=== PATIENT | male | born 2000 | race Caucasian/White ===

== ENCOUNTER 2020-05-15 17:17 | Outpatient (REF) | payer SELFPAY | END 2020-05-15 17:18 | disposition home or self-care (01) | LOC: HO.LAB 17:17 | PROVIDERS: Visit Provider Internal Medicine | DX: Z20.828 Contact with and (suspected) exposure to other viral communicable diseases (principal) | CPT/HCPCS: C9803; U0003 ==

== ENCOUNTER 2020-06-23 19:14 | Emergency (ER) | payer SELFPAY ==
[2020-06-23 19:42] VITALS: BP 126/83; PULSE 90; RESP 18; TEMP 37.6; O2SAT 97; BMI 30.8
--- NOTE | 2020-06-23 20:06 | XR_ITS ---
EXAMINATION: XR CHEST CLINICAL INFORMATION: Shortness of breath COMPARISON: Chest x-ray 06/24/2019 TECHNIQUE: Frontal portable view of the chest was obtained. 8:17 PM FINDINGS: No significant abnormality is noted involving the heart, lungs, mediastinum, bony thorax or soft tissues. XR/XR chest 1V IMPRESSION: Unremarkable examination.
--- NOTE | 2020-06-23 20:08 | ED_ITS ---
HPI - General Adult General Chief complaint: Dyspnea Stated complaint: flu like Time Seen by Provider: 06/23/20 19:57 Source: patient Mode of arrival: ambulatory Limitations: no limitations History of Present Illness HPI narrative: Constitutional : No Weight loss, No Fever, No Chills, No Night Sweats, No Fatigue, No Malaise ENT/Mouth : No Hearing loss, No Ear Pain, No Nasal Congestion, No Sinus Pain, No Hoarseness, No sore throat, No Rhinorrhea, No Swallowing Difficulty Eyes: No Eye Pain, No Swelling, No Redness, No Foreign Body, No Discharge, No Vision Changes Cardiovascular : No Chest Pain, No SOB, No Dyspnea on Exertion, No Orthopnea, No Edema, No Palpitations Respiratory : No Cough, No Sputum, No Wheezing, No Smoke Exposure, No Dyspnea Gastrointestinal : No Nausea, No Vomiting, No Diarrhea, No Constipation, No abdominal Pain, No Hematochezia, No Melena Genitourinary : no irregular bleeding, No Dysuria, No Urinary Frequency, No Hematuria, No Urinary Incontinence, No Urgency, No Flank Pain, No Urinary Flow Changes, No Hesitancy Musculoskeletal : No joint pain, No Myalgias, No Joint Swelling Skin : No Skin Lesions, No rash Neuro : No Weakness, No Numbness, No Paresthesias, No Loss of Consciousness, No Dizziness, No Headache Psych : No Anxiety/Panic, No Depression, No SI/HI/AH/VH, No Social Issues, Heme/Lymph: No Bruising, No Bleeding,No Lymphadenopathy Endocrine : No Polyuria, No Polydipsia, No Temperature IntolerancePatient comes to emergency room complaining of cough. Patient states it started approximately 2 days ago. Patient states she feels short of breath when he coughs. Denies f ever or chills, no myalgias. Patient states he was tested for COVID-19 1 month ago and was negative MD complaint: Cough Related Data Previous Rx's Medication Instructions Recorded benzonatate [Tessalon Perles] 100 mg PO TID PRN #14 cap 06/23/20 Allergies Allergy/AdvReac Type Severity Reaction Status Date / Time No Known Allergies Allergy Unverified 03/14/20 19:02 [No Known Allergies*] Review of Systems Review of Systems: Constitutional : No Weight loss, No Fever, No Chills, No Night Sweats, No Fatigue, No Malaise ENT/Mouth : No Hearing loss, No Ear Pain, No Nasal Congestion, No Sinus Pain, No Hoarseness, No sore throat, No Rhinorrhea, No Swallowing Difficulty Eyes: No Eye Pain, No Swelling, No Redness, No Foreign Body, No Discharge, No Vision Changes Cardiovascular : No Chest Pain, No SOB, No Dyspnea on Exertion, No Orthopnea, No Edema, No Palpitations Respiratory : Complaining of dry cough, No Sputum, No Wheezing, No Smoke Exposure, complaining of shortness of breath when coughing Gastrointestinal : No Nausea, No Vomiting, No Diarrhea, No Constipation, No abdominal Pain, No Hematochezia, No Melena Genitourinary : no irregular bleeding, No Dysuria, No Urinary Frequency, No Hematuria, No Urinary Incontinence, No Urgency, No Flank Pain, No Urinary Flow Changes, No Hesitancy Musculoskeletal : No joint pain, No Myalgias, No Joint Swelling Skin : No Skin Lesions, No rash Neuro : No Weakness, No Numbness, No Paresthesias, No Loss of Consciousness, No Dizziness, No Headache Psych : No Anxiety/Panic, No Depression, No SI/HI/AH/VH, No Social Issues, Heme/Lymph: No Bruising, No Bleeding,No Lymphadenopathy Endocrine : No Polyuria, No Polydipsia, No Temperature Intolerance [facility] Social History Social History Advance Directives: No Advance Directives Information Provided: No Physical Exam Vital Signs: Vital Signs: Last Vital Signs Temp 99.7 F 06/23/20 19:42 Pulse 90 06/23/20 19:42 Resp 18 06/23/20 19:42 BP 126/83 06/23/20 19:42 Pulse Ox 97 06/23/20 19:42 Body Mass Index 30.8 Appearance: Alert. Oriented X3. No acute distress. Eyes: Pupils equal, round and reactive to light. ENT: Pharynx normal. Neck: Normal inspection. Neck supple. No lymph nodes noted. No crepitus CVS: Normal heart rate and rhythm. Pulses normal. Normal S1 and S2 Respiratory: No respiratory distress. Breath sounds normal. No Wheezing. No rales Abdomen: Soft and nontender. No rigidity. No distention. good BS x4 Skin: Skin warm and dry. Normal skin color. Normal skin turgor. Extremities: No lower extremity edema. No lower extremity edema. No Lacerations. No Rash Neuro: Oriented X 3. No motor deficit. No sensory deficit. Moving all extermities. No slurred speech. Course Course Course Narrative: I discussed the x-ray with the patient, patient's x-rays within normal limits. Patient has generalized malaise likely secondary to a viral syndrome versus viral bronchitis Medical Decision Making Imaging Data Chest x-ray: Radiologist's impression: FINDINGS: No significant abnormality is noted involving the heart, lungs, mediastinum, bony thorax or soft tissues. XR/XR chest 1V IMPRESSION: Unremarkable examination. Discharge Plan Discharge Clinical Impression: Cough, Acute viral syndrome Patient Disposition: Home, Self-Care Instructions: Acute Cough (ED) Additional Instructions: Please follow-up with your primary care physician tomorrow. If you have any worsening or new symptoms, please return to the emergency room or call 911 Prescriptions: New benzonatate [Tessalon Perles] 100 mg capsule 100 mg PO TID PRN (Reason: cough) Qty: 14 RF: 0
--- NOTE | 2020-06-23 20:40 | PC.NURSE ---
pt to room with c/o sob and fever x 2 days. md in room for eval. COVID obtained. pt awaiting further orders.
== END 2020-06-23 21:32 | disposition home or self-care (01) ==
PROVIDERS: Emergency Provider Emergency Medicine
DX: B34.9 Viral infection, unspecified (principal); R06.00 Dyspnea, unspecified; R05 Cough; Z20.828 Contact with and (suspected) exposure to other viral communicable diseases
CPT/HCPCS: 71045; 99283; U0003

== ENCOUNTER 2021-02-26 00:06 | Emergency (ER) | payer OTHER, SELFPAY ==
[2021-02-26 00:18] VITALS: BP 121/71; PULSE 85
[2021-02-26] MEDS: EPINEPHrine 1 MG/ML VIAL 0.3 MG IM (00:18)
[2021-02-26] MEDS: diphenhydrAMINE HCL 50 MG/ML VIAL IVPUSH (00:21)
[2021-02-26] MEDS: methylPREDNISolone Sod Succ 125 MG/2 ML VIAL IVPUSH (00:21)
--- NOTE | 2021-02-26 00:22 | ED.ALLEREA ---
HPI - Allergic Reaction General Chief complaint: Allergic Reaction Stated complaint: Allergic Reaction Time Seen by Provider: 02/26/21 00:14 Source: patient Mode of arrival: ambulatory Limitations: no limitations History of Present Illness HPI narrative: Patient had fish and cold so nice clean within 1 hour of that noticed hives all over the body. No history of allergic reaction in the past. Patient feels lips are swollen. No tongue swelling no shortness of breath no throat tightness Related Data Previous Rx's Medication Instructions Recorded benzonatate 100 mg capsule 100 mg PO TID PRN #14 cap 06/23/20 (Tessalon Perles) diphenhydramine HCl 25 mg tablet 50 mg PO QID PRN #20 tab 02/26/21 (Benadryl Allergy) prednisone 20 mg tablet 40 mg PO DAILY #10 tab 02/26/21 Allergies Allergy/AdvReac Type Severity Reaction Status Date / Time No Known Allergies Allergy Unverified 03/14/20 19:02 [No Known Allergies*] Review of Systems Review of Systems: Yes all other systems are reviewed and are negative [facility] Social History Social History Alcohol intake: never Smoked in Last 30 Days: No Use of substances other than those prescribed or required for medical reasons: No Advance Directives: No Physical Exam Vital Signs: Vital Signs: Last Vital Signs Temp 98.3 F 02/26/21 00:25 Pulse 72 02/26/21 01:27 Resp 20 02/26/21 01:27 BP 117/61 02/26/21 01:27 Pulse Ox 97 02/26/21 01:27 Body Mass Index 29.0 Const: General: no acute distress Orientation/consciousness: patient oriented x3 HENMT: Head: Yes normocephalic Ears: hearing grossly normal bilaterally General nose exam: Normal external nose present Mouth: no muffled voice and tongue abnormal (Slightly swollen) Throat: Yes posterior oropharynx normal, Yes tonsils normal and No uvular edema Resp: Effort & Inspection: normal respiratory effort Auscultation: clear to auscultation bilaterally Cardio: Rate: regular rate Rhythm: regular rhythm Heart sounds: S1 normal heart sound present and S2 normal heart sound present GI: Inspection: Yes normal to inspection Palpation (GI): Soft to palpation and nontender Auscultation: normal bowel sounds Skin: Other: Hives all over extremities and trunk and the face , lips slightly swollen too Neuro: General: patient oriented x3 Discharge Plan Discharge Clinical Impression: Allergic reaction Qualifiers: Encounter type: initial encounter Qualified Code(s): T78.40XA - Allergy, unspecified, initial encounter Patient Disposition: Home, Self-Care Instructions: Food Allergy (ED), Allergies (ED) Additional Instructions: Cause of allergic reaction not clear likely food/fish Benadryl, prednisone as advised follow with PCP for further evaluation Report to the ER if recurrence of the rash, throat swelling, shortness of breath Prescriptions: New prednisone 20 mg tablet 40 mg PO DAILY Qty: 10 RF: 0 diphenhydramine HCl [Benadryl Allergy] 25 mg tablet 50 mg PO QID PRN (Reason: allergic reaction) Qty: 20 RF: 0 No Action benzonatate [Tessalon Perles] 100 mg capsule 100 mg PO TID PRN (Reason: cough) Qty: 14 RF: 0 Interventions: ED Discharge Assessment Last Done: 02/26/21 01:28 Discharge Date/Time: 02/26/21 01:34
[2021-02-26 00:25] VITALS: BP 121/71; PULSE 72; RESP 16; TEMP 36.8; O2SAT 100; BMI 29.0
[2021-02-26 00:32] VITALS: BP 157/72; PULSE 104; RESP 18; O2SAT 100
[2021-02-26] MEDS: diphenhydrAMINE HCL 25 MG TABLET 50 MG PO (01:18)
[2021-02-26] MEDS: Famotidine/PF 20 MG/2 ML VIAL IVPUSH (01:19)
[2021-02-26 01:22] VITALS: BP 126/69; PULSE 75; RESP 20; O2SAT 100
--- NOTE | 2021-02-26 01:23 | PC.NURSE ---
pt rash is improving, no facial swelling, pt talking in full sentences. sat 100% on room air. pt able to swallow with no difficulty
[2021-02-26 01:27] VITALS: BP 117/61; PULSE 72; RESP 20; O2SAT 97
== END 2021-02-26 01:34 | disposition home or self-care (01) ==
PROVIDERS: Emergency Provider Internal Medicine
DX: T78.40XA Allergy, unspecified, initial encounter (principal); L50.9 Urticaria, unspecified; X58.XXXA Exposure to other specified factors, initial encounter
CPT/HCPCS: 96372; 96374; 96375; 99284; J0171; J1200; J2930; Q0163

== ENCOUNTER 2021-06-20 00:27 | Emergency (ER) | payer OTHER, SELFPAY ==
[2021-06-20 00:38] VITALS: BP 147/84; PULSE 89; RESP 18; TEMP 37.1; O2SAT 98; BMI 30.2
[2021-06-20] MEDS: EPINEPHrine 1 MG/ML VIAL 0.3 MG IM (00:49)
[2021-06-20] MEDS: diphenhydrAMINE HCL 50 MG/ML VIAL IM (00:53)
[2021-06-20] MEDS: dexAMETHasone 2 MG TABLET 10 MG PO (00:55)
[2021-06-20] MEDS: Famotidine 20 MG TABLET PO (00:55)
--- NOTE | 2021-06-20 01:00 | ED.ALLEREA ---
HPI - Allergic Reaction General Chief complaint: Allergic Reaction Stated complaint: allergic reaction Time Seen by Provider: 06/20/21 00:45 Source: patient Mode of arrival: ambulatory Limitations: no limitations History of Present Illness HPI narrative: Patient's history of remote history of allergic reaction to cod fish today patient had cod fish an hour ago and after that patient noticed hives with tingling of the tongue and lips with mild difficulty in breathing. Patient is speaking full sentences no significant shortness of breath noticed also patient has noticed some stomach upset but no vomiting Related Data Previous Rx's Medication Instructions Recorded benzonatate 100 mg capsule 100 mg PO TID PRN #14 cap 06/23/20 (Tessalon Perles) diphenhydramine HCl 25 mg tablet 50 mg PO QID PRN #20 tab 02/26/21 (Benadryl Allergy) prednisone 20 mg tablet 40 mg PO DAILY #10 tab 02/26/21 diphenhydramine HCl 25 mg capsule 50 mg PO Q6H PRN #20 cap 06/20/21 (Benadryl) prednisone 20 mg tablet 40 mg PO DAILY #10 tab 06/20/21 Allergies Allergy/AdvReac Type Severity Reaction Status Date / Time No Known Allergies Allergy Unverified 03/14/20 19:02 [No Known Allergies*] Review of Systems Review of Systems: Yes all other systems are reviewed and are negative [facility] Social History Social History Alcohol intake: never Advance Directives: No Physical Exam Vital Signs: Vital Signs: Last Vital Signs Temp 98.4 F 06/20/21 01:18 Pulse 88 06/20/21 01:18 Resp 16 06/20/21 01:18 BP 132/72 06/20/21 01:18 Pulse Ox 100 06/20/21 01:18 BMI result Body Mass Index 30.2 Appearance: Alert. Oriented X3. No acute distress. ENT: Pharynx normal. Oral Mucosa moist no significant tongue swelling noticed uvula normal and midline slight swelling of the lower lip Neck: Normal inspection. Neck supple. No stridor CVS: Normal heart rate and rhythm. Pulses normal. Respiratory: No respiratory distress. Equal air entry bilateral, no wheezing/rales/rhonchi Abdomen: Soft and nontender. Bowel sounds are present, no mass palpable, no CVA tenderness Skin: Skin warm and dry. Diffuse hives or the back of the chest and face extremities Normal skin turgor. Extremities: No lower extremity edema. No calf tenderness Neuro: Oriented X 3. MDM - Allergic Reaction MDM Narrative Medical decision making narrative: Patient allergic reaction to codfish improved after appy Pepcid Decadron and Benadryl now feeling much better hives have gone will discharge patient home Discharge Plan Discharge Clinical Impression: Allergic reaction Qualifiers: Encounter type: initial encounter Qualified Code(s): T78.40XA - Allergy, unspecified, initial encounter Patient Disposition: Home, Self-Care Instructions: General Allergic Reaction (ED) Additional Instructions: Do not eat codfish as you are allergic to it Benadryl 50 mg every 6 hours as needed Report to the ER if recurrence of the rash Start taking prednisone in the morning if rash recurs otherwise do not take prednisone No coma bacalao, ya que es al?rgico a ?l. Benadryl 50 mg cada 6 horas seg?n sea necesario Informe a la bradley de emergencias si reaparece la erupci?n Empiece a irene prednisona por la ma?denice si la erupci?n reaparece; de ??lo contrario, no tome prednisona Prescriptions: New diphenhydramine HCl [Benadryl] 25 mg capsule 50 mg PO Q6H PRN (Reason: allergic reaction) Qty: 20 RF: 0 prednisone 20 mg tablet 40 mg PO DAILY Qty: 10 RF: 0 No Action benzonatate [Tessalon Perles] 100 mg capsule 100 mg PO TID PRN (Reason: cough) Qty: 14 RF: 0 prednisone 20 mg tablet 40 mg PO DAILY Qty: 10 RF: 0 diphenhydramine HCl [Benadryl Allergy] 25 mg tablet 50 mg PO QID PRN (Reason: allergic reaction) Qty: 20 RF: 0 Print Language: [place] Citizen
[2021-06-20 01:18] VITALS: BP 132/72; PULSE 88; RESP 16; TEMP 36.9; O2SAT 100
[2021-06-20 02:00] VITALS: BP 119/63; PULSE 77; RESP 16; TEMP 36.8; O2SAT 100
== END 2021-06-20 02:06 | disposition home or self-care (01) ==
PROVIDERS: Emergency Provider Internal Medicine
DX: T78.1XXA Other adverse food reactions, not elsewhere classified, initial encounter (principal); L50.9 Urticaria, unspecified; X58.XXXA Exposure to other specified factors, initial encounter
CPT/HCPCS: 96372; 99284; J0171; J1200; J8540

== ENCOUNTER 2021-11-22 22:34 | Emergency (ER) | payer OTHER, SELFPAY ==
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
[2021-11-22 23:20] VITALS: BP 147/82; PULSE 75; RESP 18; TEMP 37.1; O2SAT 98; BMI 30.2
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
[2021-11-23] MEDS: Ibuprofen 600 MG TABLET PO (02:55)
[2021-11-23 03:08] VITALS: BP 129/85; PULSE 64; RESP 18; TEMP 36.7; O2SAT 97
== END 2021-11-23 03:23 | disposition home or self-care (01) ==
PROVIDERS: Emergency Provider Emergency Medicine Emergency Medical Services
DX: S16.1XXA Strain of muscle, fascia and tendon at neck level, initial encounter (principal); S43.402A Unspecified sprain of left shoulder joint, initial encounter; M54.50 Low back pain, unspecified; M54.6 Pain in thoracic spine; M54.2 Cervicalgia; V43.52XA Car driver injured in collision with other type car in traffic accident, initial encounter; Y93.9 Activity, unspecified; Y92.410 Unspecified street and highway as the place of occurrence of the external cause; Y99.9 Unspecified external cause status; Z79.899 Other long term (current) drug therapy
CPT/HCPCS: 70450; 72125; 99283

== ENCOUNTER 2022-02-28 23:42 | Emergency (ER) | payer OTHER, SELFPAY | END 2022-03-01 00:02 | disposition left against medical advice (07) | LOC: HO.ED 03-01 00:02 | PROVIDERS: Emergency Provider Emergency Medicine | DX: M79.646 Pain in unspecified finger(s) (principal) ==

== ENCOUNTER 2022-10-27 20:43 | Emergency (ER) | payer MEDICAID, SELFPAY ==
--- NOTE | ~2022-10-27 | CT_ITS ---
EXAMINATION: CT ABDOMEN AND PELVIS WITHOUT CONTRAST CLINICAL INFORMATION: Left flank pain with hematuria COMPARISON: None available. TECHNIQUE: Multidetector volumetric imaging was performed from the superior aspect of the liver through the pubic symphysis. Sagittal and coronal reformatted images were obtained on the technologist's workstation. This CT examination was performed using dose optimization techniques as appropriate, variously including the following: *Automated exposure control *Adjustment of mA and/or kV according to patient size (this includes techniques or standardized protocols for targeted exams where dose is matched to indication/reason for exam; i.e. extremities or head) *Use of iterative reconstruction technique DLP: 629 mGy-cm FINDINGS: LUNG BASES: The visualized lung bases are unremarkable. LIVER, GALLBLADDER, AND BILIARY TREE: The liver is normal in size, shape, and attenuation. No focal hepatic lesion or biliary ductal dilatation is identified. The gallbladder is unremarkable with no evidence of radiopaque gallstones, gallbladder wall thickening, or obvious pericholecystic inflammatory changes. PANCREAS: Unremarkable. SPLEEN: Unremarkable. ADRENAL GLANDS: Unremarkable. KIDNEYS AND URETERS: The kidneys are normal in size, shape, and attenuation. No hydronephrosis, hydroureter, or calculi seen. No perinephric stranding. BLADDER: Unremarkable. GASTROINTESTINAL TRACT: No evidence of bowel obstruction or significant wall thickening. The appendix is unremarkable. No free fluid or free air is seen. ABDOMINAL WALL: No significant hernia is appreciated. LYMPH NODES: Numerous scattered subcentimeter lymph nodes throughout the mesentery. Few enlarged left inguinal lymph nodes are noted, measuring up to 1.4 cm in short axis dimension. VASCULAR: Unremarkable. PELVIC VISCERA: Unremarkable. OSSEOUS STRUCTURES: Unremarkable. CT/CT abdomen pelvis wo IV con IMPRESSION: 1. No hydronephrosis or calculus identified. 2. Few enlarged left inguinal lymph nodes, of uncertain clinical significance and which may be reactive. 3. Numerous nonspecific scattered subcentimeter mesenteric lymph nodes.
[2022-10-27 21:02] VITALS: BP 160/85; PULSE 80; RESP 16; TEMP 36.7; O2SAT 98; BMI 30.3
[2022-10-27 21:24] LABS: Appearance Urine Clear; Color Urine Yellow; Glucose Urine UA Negative (Negative); Leukocyte Esterase Urine Negative (Negative); Nitrite Urine Negative (Negative); Specific Gravity - Urine 1.025 (1.005-1.025); UMIC TRIGGER UACC YES; Urine Blood Small (1+) (Negative); Urine Ketones Trace mg/dL (Negative); Urine Protein Negative (Neg-Trace)
[2022-10-27 21:32] LABS: Bacteria Urine None Seen (None Seen); Hyaline Casts Urine 0-2 /LPF (0-2); Squamous Epithelial Cell Urine 0-2 /HPF (0-2); WBC Urine 0-5 /HPF (0-5)
[2022-10-27 21:39] LABS: MANUAL DIFF FLAG NO
[2022-10-27 21:42] LABS: Basophils Percent Auto 0.6 % (0-2); Eosinophils Absolute Auto 0.3 X10*3/uL (0.0-0.4); Eosinophils Percent Auto 4.9 % (0-4); Hematocrit 43.9 % (42.0-52.0); Hemoglobin 13.9 g/dl (14.0-18.0); Imm Gran Abs Auto 0.01 X10*3/uL (0.00-0.03); Imm Gran Pct Auto 0.1 % (0.0-0.4); Lymphocytes Absolute Auto 1.5 X10*3/uL (1.2-4.9); Lymphocytes Percent Auto 21.9 % (20-40); Mean Corpuscular HGB Conc 31.7 g/dl (31.0-36.0); Mean Corpuscular Hemoglobin 25.5 pg (27.0-33.0); Mean Corpuscular Volume 80.4 fL (80.0-98.0); Mean Platelet Volume 10.3 fL (9.4-12.4); Monocytes Absolute Auto 0.8 X10*3/uL (0.1-1.2); Monocytes Percent Auto 12.1 % (2-11); Neutrophils Absolute Auto 4.2 x10*3/uL (2.0-8.3); Neutrophils Percent Auto 60.4 % (45-73); Platelet Count 298 X10*3/uL (160-400); Red Blood Count 5.46 X10*6/uL (4.60-5.80); Red Cell Distribution Width 13.4 % (11.0-16.0); White Blood Count 6.9 X10*3/uL (4.8-10.8)
[2022-10-27 21:53] LABS: Anion Gap 12 (12-20); Blood Urea Nitrogen 13 mg/dL (9-16); Calcium 9.8 mg/dL (8.4-10.2); Carbon Dioxide 27 mmol/L (22-29); Chloride 105 mmol/L (96-108); Creatinine Clr Calc Pharmacy 135.9; Estimated Glomerular Filt Rate > 60; Glucose Random 96 mg/dL (60-115); Potassium 4.2 mmol/L (3.3-5.1); Sodium 140 mmol/L (135-145)
--- NOTE | 2022-10-28 00:28 | ED.MALEGU ---
HPI - Male Genitourinary General Chief complaint: Urogenital-Male Stated complaint: Flank pain Time Seen by Provider: 10/27/22 23:47 Source: patient Mode of arrival: ambulatory Limitations: no limitations History of Present Illness HPI Narrative: Patient with no significant past medical history noticed pain left flank few days , since yesterday noticed the urine. No nausea no vomiting no diarrhea no abdominal pain patient is not aware of any kidney stone in the family Related Data Previous Rx's Medication Instructions Recorded benzonatate 100 mg capsule 100 mg PO TID PRN cough #14 caps 06/23/20 (Tessalon Perles) diphenhydramine HCl 25 mg tablet 50 mg PO QID PRN allergic reaction 02/26/21 (Benadryl Allergy) #20 tabs prednisone 20 mg tablet 40 mg PO DAILY #10 tabs 02/26/21 diphenhydramine HCl 25 mg capsule 50 mg PO Q6H PRN allergic reaction 06/20/21 (Benadryl) #20 caps prednisone 20 mg tablet 40 mg PO DAILY #10 tabs 06/20/21 ibuprofen 600 mg tablet 600 mg PO Q6H PRN fever or pain 10/28/22 #30 tabs polyethylene glycol 3350 17 17 g PO DAILY #510 grams 10/28/22 gram/dose oral powder (Miralax) Allergies Allergy/AdvReac Type Severity Reaction Status Date / Time No Known Allergies Allergy Unverified 03/14/20 19:02 [No Known Allergies*] Review of Systems Review of Systems: Yes all other systems are reviewed and are negative PMFSH Social History Social History Alcohol intake: never Advance Directives: No Advance Directives Information Provided: Yes Physical Exam Vital Signs: Vital Signs: Last Vital Signs Temp 98.0 F 10/27/22 21:02 Pulse 79 10/28/22 00:50 Resp 18 10/28/22 00:50 BP 137/82 10/28/22 00:50 Pulse Ox 99 10/28/22 00:50 O2 Del Method Room Air 10/28/22 00:50 BMI result Body Mass Index 30.3 Appearance: Alert. Oriented X3. No acute distress. ENT: Pharynx normal. Oral Mucosa moist Neck: Normal inspection. Neck supple. CVS: Normal heart rate and rhythm. Pulses normal. Respiratory: No respiratory distress. Equal air entry bilateral, no wheezing/rales/rhonchi Abdomen: Soft and nontender. Bowel sounds are present, no mass palpable, L CVA tenderness + Skin: Skin warm and dry. Normal skin color. Normal skin turgor. Extremities: No lower extremity edema. No calf tenderness Neuro: Oriented X 3. No motor deficit. Medications Administered Discontinued Medications Generic Name Dose Route Start Last Admin Trade Name Freq PRN Reason Stop Dose Admin Magnesium Hydroxide 30 ml 10/28/22 01:44 10/28/22 01:53 Milk Of Magnesia 30 Ml Oral.Susp PO 10/28/22 01:45 30 ml ONCE ONE Administration Oxycodone HCl 5 mg 10/28/22 00:27 10/28/22 00:48 Oxycodone Hcl Immed Release 5 Mg Tablet PO 10/28/22 00:28 5 mg ONCE ONE Administration Medical Decision Making Medical Decision Making [facility] Narrative: Patient CT scan negative for kidney stone had shown good amount of stool likely the cause of abdominal pain. Discharge patient home on [place] Differential Diagnosis Kidney stone/UTI/acute cystitis Lab Data [facility] Lab Attestation statement: I reviewed the patient's lab results. 10/27/22 21:34 10/27/22 21:34 Labs: Lab Results 10/27/22 10/27/22 10/27/22 Range/Units 21:16 21:34 21:34 WBC 6.9 (4.8-10.8) X10*3/uL RBC 5.46 (4.60-5.80) X10*6/uL Hgb 13.9 L (14.0-18.0) g/dl Hct 43.9 (42.0-52.0) % MCV 80.4 (80.0-98.0) fL MCH 25.5 L (27.0-33.0) pg MCHC 31.7 (31.0-36.0) g/dl RDW 13.4 (11.0-16.0) % Plt Count 298 (160-400) X10*3/uL MPV 10.3 (9.4-12.4) fL Immature Gran % (Auto) 0.1 (0.0-0.4) % Neut % (Auto) 60.4 (45-73) % Lymph % (Auto) 21.9 (20-40) % [place] % (Auto) 12.1 H (2-11) % Eos % (Auto) 4.9 H (0-4) % Baso % (Auto) 0.6 (0-2) % Lymph # (Auto) 1.5 (1.2-4.9) X10*3/uL [place] # (Auto) 0.8 (0.1-1.2) X10*3/uL Eos # (Auto) 0.3 (0.0-0.4) X10*3/uL Baso # (Auto) 0.0 (0.0-0.2) X10*3/uL Abs Immat Gran (auto) 0.01 (0.00-0.03) X10*3/uL Absolute Neuts (auto) 4.2 (2.0-8.3) x10*3/uL Absolute Nucleated RBC 0.000 (0.0-0.012) X10*3/uL Nucleated RBC % (auto) 0.0 (0.0-0.2) /100WBC Sodium 140 (135-145) mmol/L Potassium 4.2 (3.3-5.1) mmol/L Chloride 105 (96-108) mmol/L Carbon Dioxide 27 (22-29) mmol/L Anion Gap 12 (12-20) BUN 13 (9-16) mg/dL Creatinine 0.96 (0.5-1.4) mg/dL Estim Creat Clear Calc 135.9 Estimated GFR > 60 Random Glucose 96 (60-115) mg/dL Calcium 9.8 (8.4-10.2) mg/dL Urine Color Yellow Urine Appearance Clear Urine pH 6.0 (5.0-9.0) Ur Specific [place] 1.025 (1.005-1.025) Urine Protein Negative (Neg-Trace) mg/dL Urine Glucose (UA) Negative (Negative) mg/dL Urine Ketones Trace (Negative) mg/dL Urine Blood Small (1+) H (Negative) Urine Nitrite Negative (Negative) Ur Leukocyte Esterase Negative (Negative) Urine RBC 11-20 H (0-2) /HPF Urine WBC 0-5 (0-5) /HPF Ur Squamous Epith Cells 0-2 (0-2) /HPF Urine Bacteria None Seen (None Seen) Hyaline Casts 0-2 (0-2) /LPF Discharge Plan Discharge Clinical Impression: Back pain, Constipation Patient Disposition: Home, Self-Care Instructions: Constipation (ED), Back Pain (ED) Additional Instructions: Drink plenty of fluids No kidney stones were seen Stool softener as advised Tylenol/Motrin for pain Follow-up with your PCP Prescriptions: New polyethylene glycol 3350 [Miralax] 17 gram/dose powder 17 g PO DAILY Qty: 510 0RF ibuprofen 600 mg tablet 600 mg PO Q6H PRN (Reason: fever or pain) Qty: 30 0RF No Action benzonatate [Tessalon Perles] 100 mg capsule 100 mg PO TID PRN (Reason: cough) Qty: 14 0RF prednisone 20 mg tablet 40 mg PO DAILY Qty: 10 0RF diphenhydramine HCl [Benadryl Allergy] 25 mg tablet 50 mg PO QID PRN (Reason: allergic reaction) Qty: 20 0RF diphenhydramine HCl [Benadryl] 25 mg capsule 50 mg PO Q6H PRN (Reason: allergic reaction) Qty: 20 0RF prednisone 20 mg tablet 40 mg PO DAILY Qty: 10 0RF Stand Alone Forms: Work/School Release Interventions: ED Discharge Assessment Last Done: 10/28/22 02:07 Discharge Date/Time: 10/28/22 02:08
[2022-10-28] MEDS: oxyCODONE HCl Immed Release 5 MG TABLET PO (00:48)
[2022-10-28 00:50] VITALS: BP 137/82; PULSE 79; RESP 18; O2SAT 99
[2022-10-28] MEDS: Milk of Magnesia 30 ML ORAL.SUSP PO (01:53)
== END 2022-10-28 02:08 | disposition home or self-care (01) ==
PROVIDERS: Emergency Provider Internal Medicine
DX: M54.50 Low back pain, unspecified (principal); K59.00 Constipation, unspecified; Z79.899 Other long term (current) drug therapy
CPT/HCPCS: 36415; 74176; 80048; 81001; 85025; 99283; 99284

== ENCOUNTER 2023-12-24 22:17 | Emergency (ER) | payer SELFPAY ==
[2023-12-24 22:18] VITALS: BP 143/79; PULSE 101; RESP 18; TEMP 36.7; O2SAT 99; BMI 30.3
--- NOTE | 2023-12-24 22:24 | ED_ITS ---
HPI - Allergic Reaction General Chief complaint: Allergic Reaction Stated complaint: Allergic reaction Time Seen by Provider: 12/24/23 22:24 Source: patient Mode of arrival: ambulatory Limitations: no limitations History of Present Illness ED Provider: Kathleen SANDRA HPI narrative: 23-year-old male history of obesity presents with complaints of rash throughout body that is itchy, this rash started after eating fish at approximately 17:00 he reports he ate bacalao . He has had a previous reaction to fish in the past. He took 25 mg of Benadryl approximately 40 minutes prior to arrival that seemed to not be helping. He reports at this time he has only having a rash. Denies difficulty speaking, breathing, sore throat, nausea vomiting, diarrhea, abdominal pain, chest pain, shortness of breath, trouble controlling secretions or changes in voice. His allergy to fish has never been this bad. Has not seen an allergy doctor. Does not have an EpiPen at home. Related Data Previous Rx's ?Medication ?Instructions ?Recorded benzonatate 100 mg capsule 100 mg PO TID PRN cough #14 caps 06/23/20 (Tessalon Perles) diphenhydramine HCl 25 mg tablet 50 mg (2 x 25 mg) PO QID PRN 02/26/21 (Benadryl Allergy) allergic reaction #20 tabs prednisone 20 mg tablet 40 mg (2 x 20 mg) PO DAILY #10 tabs 02/26/21 diphenhydramine HCl 25 mg capsule 50 mg (2 x 25 mg) PO Q6H PRN 06/20/21 (Benadryl) allergic reaction #20 caps prednisone 20 mg tablet 40 mg (2 x 20 mg) PO DAILY #10 tabs 06/20/21 ibuprofen 600 mg tablet 600 mg PO Q6H PRN fever or pain 10/28/22 #30 tabs polyethylene glycol 3350 17 17 g PO DAILY #510 grams 10/28/22 gram/dose oral powder (Miralax) diphenhydramine HCl 25 mg capsule 25 mg PO TID PRN allergic reaction 12/24/23 (Benadryl) #20 caps epinephrine 0.3 mg/0.3 mL 0.3 mg (0.3 mL) IM Q4H PRN 12/24/23 injection, auto-injector (EpiPen anaphylaxis #2 ea 2-Junior) prednisone 20 mg tablet 40 mg (2 x 20 mg) PO DAILY 5 days 12/24/23 #10 tabs Allergies Allergy/AdvReac Type Severity Reaction Status Date / Time No Known Allergies Allergy Verified 12/24/23 22:22 [No Known Allergies*] Review of Systems Review of Systems: Yes all other systems are reviewed and are negative [facility] Past Medical History Attestation statement: The following information was validated with the patient. Source: old records reviewed and nursing notes reviewed Social History Social History Alcohol intake: never Smoked in Last 30 Days: No Use of substances other than those prescribed or required for medical reasons: No Advance Directives: No Advance Directives Information Provided: No Do you have a plan to hurt others: No Plan Physical Exam ED Vital Signs: Vital Signs - 24 hr 12/24/23 22:18 Temperature 98.0 F Pulse Rate 101 H Respiratory Rate 18 Blood Pressure 143/79 H Pulse Oximetry 99 Oxygen Delivery Method Room Air BMI result Body Mass Index 30.3 vss Appearance: Alert.? Oriented X3.? No acute distress.? Head: Normocephalic, atraumatic, no step-offs or deformities Eyes: Pupils equal, round and reactive to light.? ENT: Pharynx normal.? Uvula midline. No edema to hard or soft palate, lips, tongue, uvula. Speaking in full sentences controlling secretions well Neck: Normal inspection.? Neck supple.? CVS: Normal heart rate and rhythm.? Pulses normal.? Respiratory: No respiratory distress.? Breath sounds normal.? Abdomen: Soft and nontender.? Skin: Skin warm and dry.? Normal skin color.? Normal skin turgor.?+ urticaria to b/l UE,LE, trunk, face. Extremities: No lower extremity edema.? No calf ttp. 5/5 strength to bilateral upper and lower extremities Back: No midline tenderness, no C-spine tenderness, full range of motion, no CVA tenderness bilaterally Neuro: Oriented X 3.? No motor deficit.? No sensory deficit. CN 2-12 intact Course Reevaluation(s) Reevaluation #1: Patient urticaria much improved patient sleeping feeling well. no acute distress. Time: 23:12 Reevaluation #2: Patient feeling much better 100% on room air. Hives almost completely gone. No difficulty breathing shortness of breath, nausea, vomiting, abdominal pain. No indication for epinephrine. Will discharge him with EpiPen, Benadryl, prednisone. Advised return with new or worsening symptoms Educated patient on diagnosis and treatment plan, answered all question, patient verbalizes understanding. At this time patient will be discharged home, advised to return with new or worsening symptoms. Educated on worrisome signs and symptoms and when to return. At this time I feel comfortable discharge home. Time: 23:36 Medications Administered Discontinued Medications Generic Name Dose Route Start Last Admin Trade Name Shaka PRN Reason Stop Dose Admin Diphenhydramine HCl 25 mg 12/24/23 22:25 12/24/23 22:35 Diphenhydramine Hcl 50 Mg/Ml Vial IVPUSH 12/24/23 22:26 25 mg ONCE ONE Administration Famotidine 20 mg 12/24/23 22:25 12/24/23 22:31 Famotidine/Pf 20 Mg/2 Ml Vial IVPUSH 12/24/23 22:26 20 mg ONCE ONE Administration Methylprednisolone Sodium Succinate 125 mg 12/24/23 22:25 12/24/23 22:35 Methylprednisolone Sod Succ 125 Mg/2 Ml Vial IVPUSH 12/24/23 22:26 125 mg ONCE ONE Administration Medical Decision Making Medical Decision Making MDM Narrative: 23-year-old male presents with allergic reaction status post eating fish. Known history of allergic reaction to fish. Physical exam Pharynx normal.? Uvula midline. No edema to hard or soft palate, lips, tongue, uvula. Speaking in full sentences controlling secretions well di ffuse urticaria noted. History and physical exam concerning for allergic reaction. Less likely anaphylaxis at this time. No signs of airway compromise or acute threat to airway. Plan will give Benadryl, famotidine, Solu-Medrol and monitor patient. Will hold on epinephrine as patient has patent airway no signs of anaphylaxis. Differential Diagnosis Differential Diagnoses: The differential diagnosis associated with the presentation includes History and physical exam concerning for allergic reaction. Less likely anaph ylaxis at this time. No signs of airway compromise or acute threat to airway. Admission/Observation Consideration of admission/observation: Escalation of care including admission/observation considered unlikely Chronic Conditions Patient?s care impacted by: Other (obesity ) Critical Care Time Critical Care Time Critical Care Time: Yes Total Critical Care Time: 35 Attestation: I attest to this time spent taking care of the patient, obtaining history, physical, reviewing labs, imaging, speaking to my attending, specialist or hospitalist. Discharge Plan Discharge Clinical Impression: Allergic reaction Patient Disposition: Home, Self-Care Instructions: General Allergic Reaction (ED), Allergy Testing (ED) Additional Instructions: Take your medications as prescribed. If you were prescribed antibiotics today, it is important that you take your medication to their entirety, do not skip any doses, do not finish them early. Follow-up with your primary care provider this week. Return to the emergency department with new or worsening symptoms. Such as fevers, chills, chest pain, shortness of breath, nausea, vomiting, dizziness, headache, vision changes, lethargy In case of emergency call 911 Follow-up with allergy and immunology How to use an EpiPen: ? Place the orange tip against the middle of the outer thigh. ? Swing and push the auto-injector firmly into the thigh until it ?clicks? ? Hold firmly in place for three seconds?count slowly, ?1, 2, 3? An EpiPen has been sent to your pharmacy this should only be used in severe emergency such as inability to breathe trouble speaking, shortness breath or any signs of anaphylaxis as discussed. If he use an EpiPen it is crucial you come in to an emergency department to be evaluated as you can have a rebound effect. Please follow-up with an allergy doctor. Prescriptions: New prednisone 20 mg tablet 40 mg PO DAILY 5 Days Qty: 10 0RF diphenhydramine HCl [Benadryl] 25 mg capsule 25 mg PO TID PRN (Reason: allergic reaction) Qty: 20 0RF epinephrine [EpiPen 2-Junior] 0.3 mg/0.3 mL auto-injector 0.3 mg IM Q4H PRN (Reason: anaphylaxis) Qty: 2 0RF No Action benzonatate [Tessalon Perles] 100 mg capsule 100 mg PO TID PRN (Reason: cough) Qty: 14 0RF prednisone 20 mg tablet 40 mg PO DAILY Qty: 10 0RF diphenhydramine HCl [Benadryl Allergy] 25 mg tablet 50 mg PO QID PRN (Reason: allergic reaction) Qty: 20 0RF diphenhydramine HCl [Benadryl] 25 mg capsule 50 mg PO Q6H PRN (Reason: allergic reaction) Qty: 20 0RF prednisone 20 mg tablet 40 mg PO DAILY Qty: 10 0RF polyethylene glycol 3350 [Miralax] 17 gram/dose powder 17 g PO DAILY Qty: 510 0RF ibuprofen 600 mg tablet 600 mg PO Q6H PRN (Reason: fever or pain) Qty: 30 0RF Referrals: [facility] [Outside] - 1 day Physician,Unknown J [Physician] - 2 days Stand Alone Forms: Work/School Release Print Language: Nigerian
[2023-12-24] MEDS: Famotidine/PF 20 MG/2 ML VIAL IVPUSH (22:31)
[2023-12-24] MEDS: diphenhydrAMINE HCL 50 MG/ML VIAL 25 MG IVPUSH (22:35)
[2023-12-24] MEDS: methylPREDNISolone Sod Succ 125 MG/2 ML VIAL IVPUSH (22:35)
[2023-12-24 23:36] VITALS: BP 128/71; PULSE 92; RESP 16; TEMP 36.8; O2SAT 100
[2023-12-24 23:44] VITALS: BP 128/71; PULSE 92; RESP 16; TEMP 36.8; O2SAT 100
== END 2023-12-24 23:45 | disposition home or self-care (01) ==
PROVIDERS: Emergency Provider Emergency Medicine
DX: L50.0 Allergic urticaria (principal); Z79.899 Other long term (current) drug therapy
CPT/HCPCS: 96374; 96375; 99284; J1200; J2919

== ENCOUNTER 2024-03-29 15:48 | Emergency (ER) | payer OTHER, SELFPAY ==
--- NOTE | ~2024-03-29 | XR_ITS ---
EXAMINATION: XR CHEST CLINICAL INFORMATION: Difficulty swallowing and pain COMPARISON: Chest radiograph 06/23/2020 TECHNIQUE: 2 views of the chest were obtained. FINDINGS: No significant abnormality is noted involving the heart, lungs, mediastinum, bony thorax or soft tissues. XR/XR chest 2V IMPRESSION: Unremarkable examination. Electronically signed by: Marcello Boateng MD 03/29/2024 09:56 PM EDT RP
[2024-03-29 16:37] VITALS: BP 134/70; PULSE 97; RESP 20; TEMP 36.7; O2SAT 99; BMI 29.5
--- NOTE | 2024-03-29 16:37 | ED_ITS ---
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 He feels he has severe heartburn and to help the pain he keeps taking motrin but it is not helping. He denies any recent black or bloody stools in the past month. He has not tried any OTC antacids. He notes eating has made it worse. He has never had anything like this before. No vomiting, diarrhea. It hurts to eat and he feels like the food takes a while to go down. MD complaint: heartburn Onset (ago): day(s) (3) Location: chest and abdomen Radiation: abdomen Severity: moderate Quality: burning Pain Consistency: intermittent Relieving factors: none Exacerbating factors: eating Associated symptoms: denies other symptoms Treatments prior to arrival: NSAID Related Data Previous Rx's ?Medication ?Instructions ?Recorded benzonatate 100 mg capsule 100 mg PO TID PRN cough #14 caps 06/23/20 (Tessalon Perles) diphenhydramine HCl 25 mg tablet 50 mg (2 x 25 mg) PO QID PRN 02/26/21 (Benadryl Allergy) allergic reaction #20 tabs prednisone 20 mg tablet 40 mg (2 x 20 mg) PO DAILY #10 tabs 02/26/21 diphenhydramine HCl 25 mg capsule 50 mg (2 x 25 mg) PO Q6H PRN 06/20/21 (Benadryl) allergic reaction #20 caps prednisone 20 mg tablet 40 mg (2 x 20 mg) PO DAILY #10 tabs 06/20/21 ibuprofen 600 mg tablet 600 mg PO Q6H PRN fever or pain 10/28/22 #30 tabs polyethylene glycol 3350 17 17 g PO DAILY #510 grams 10/28/22 gram/dose oral powder (Miralax) diphenhydramine HCl 25 mg capsule 25 mg PO TID PRN allergic reaction 12/24/23 (Benadryl) #20 caps epinephrine 0.3 mg/0.3 mL 0.3 mg (0.3 mL) IM Q4H PRN 12/24/23 injection, auto-injector (EpiPen anaphylaxis #2 ea 2-Junior) prednisone 20 mg tablet 40 mg (2 x 20 mg) PO DAILY 5 days 12/24/23 #10 tabs omeprazole 20 mg capsule,delayed 20 mg PO BID #60 caps 03/29/24 release sucralfate 100 mg/mL oral 10 ml PO BID 10 days #200 mL 03/29/24 suspension (Carafate) Allergies Allergy/AdvReac Type Severity Reaction Status Date / Time No Known Allergies Allergy Verified 03/29/24 16:40 [No Known Allergies*] Review of Systems 2 Review of Systems: Constitutional : No Weight loss, No Fever, No Chills ENT/Mouth : No sore throat, No Rhinorrhea Eyes: No Swelling, No Redness Cardiovascular : No Chest Pain, No SOB, NoEdema Respiratory : No Cough, No Sputum, No Wheezing Gastrointestinal : Positive Nausea, no Vomiting, no Diarrhea, positive abdominal Pain, No Hematochezia, No Melena Genitourinary : No Dysuria, No Urinary Frequency, No Hematuria, No Urgency Musculoskeletal : No joint pain, No Myalgias, No Joint Swelling Skin : No Skin Lesions, No rash Neuro : No Weakness, No Numbness, No Dizziness, No Headache All other systems reviewed and are negative. [facility] Past Medical History Attestation statement: The following information was validated with the patient. Source: old records reviewed Medical History No pertinent past medical history Social History Social History (Updated 03/29/24 @ 22:19 by Ny Milan DO) Alcohol intake: never Patient Tobacco Use Status: Never used Tobacco Physical Exam ED Vital Signs: Vital Signs - 24 hr 03/29/24 16:37 03/29/24 21:56 Temperature 98.1 F 98.1 F Pulse Rate 97 84 Respiratory Rate 20 16 Blood Pressure 134/70 133/82 Pulse Oximetry 99 99 Oxygen Delivery Method Room Air Room Air BMI result Body Mass Index 29.5 Appearance: Alert. Oriented X3. No acute distress. Eyes: Pupils equal, round and reactive to light. ENT: Pharynx normal. normal oropharynx Neck: Normal inspection. Neck supple. CVS: Normal heart rate and rhythm. Pulses normal. Respiratory: No respiratory distress. Breath sounds normal. Abdomen: Soft and nontender. Skin: Skin warm and dry. Normal skin color. Normal skin turgor. Extremities: No lower extremity edema. No calf ttp Neuro: Oriented X 3. No motor deficit. No sensory deficit. Course Course Course Narrative: This is a rapid medical exam performed by Douglas Duncan NP: Additional HPI, ROS, PE not included below will be deferred to primary provider. Patient is a 23-year-old male presenting with complaint of difficulty swallowing for past 3 days. Feels when he eats his esophagus is becoming irritated. Also had epigastric pain 1-2 months ago, as well as rectal bleeding. Plan: strep and viral swabs, labs Medications Administered Discontinued Medications Generic Name Dose Route Start Last Admin Trade Name Freq PRN Reason Stop Dose Admin Al Hydroxide/Mg Hydroxide 15 ml 03/29/24 21:30 03/29/24 21:42 Magnesium Hydrox/Alum Hydrox 30 Ml Oral.Susp PO 03/29/24 21:31 15 ml ONCE ONE Administration Lidocaine HCl 15 ml 03/29/24 21:30 03/29/24 21:42 Lidocaine Hcl Viscous 2 % 15 Ml Solution MUCOUS MEM 03/29/24 21:31 15 ml ONCE ONE Administration Medical Decision Making Medical Decision Making [facility] Narrative: 23 yo male with no sig PMH here with c/o esophageal pain and burning with now pain with swallowing and using motrin to relieve it his exam is benign at this time will need basic labs, CXR given his sweats at night he told triage though did not relay this to me. At this time suspect gastritis, esophagitis, PUD will start on PPI and carafate. He has benign abdominal exam and no GI bleed symptoms Differential Diagnosis Differential Diagnoses: The differential diagnosis associated with the presentation includes gastritis, esophagitis, PUD Admission/Observation Consideration of admission/observation: Escalation of care including admission/observation considered labs and xray reassuring feels better with GI cocktail Lab Data [facility] Lab Attestation statement: I reviewed the patient's lab results. 03/29/24 17:00 03/29/24 17:00 Labs: Lab Results 03/29/24 Range/Units 17:00 WBC 9.8 (4.8-10.8) X10*3/uL RBC 5.02 (4.60-5.80) X10*6/uL Hgb 12.4 L (14.0-18.0) g/dl Hct 39.1 L (42.0-52.0) % MCV 77.9 L (80.0-98.0) fL MCH 24.7 L (27.0-33.0) pg MCHC 31.7 (31.0-36.0) g/dl RDW 13.8 (11.0-16.0) % Plt Count 401 H D (160-400) X10*3/uL MPV 9.6 (9.4-12.4) fL Immature Gran % (Auto) 0.5 H (0.0-0.4) % Neut % (Auto) 78.7 H (45-73) % Lymph % (Auto) 9.5 L (20-40) % [place] % (Auto) 10.3 (2-11) % Eos % (Auto) 0.7 (0-4) % Baso % (Auto) 0.3 (0-2) % Lymph # (Auto) 0.9 L (1.2-4.9) X10*3/uL [place] # (Auto) 1.0 (0.1-1.2) X10*3/uL Eos # (Auto) 0.1 (0.0-0.4) X10*3/uL Baso # (Auto) 0.0 (0.0-0.2) X10*3/uL Abs Immat Gran (auto) 0.05 H (0.00-0.03) X10*3/uL Absolute Neuts (auto) 7.7 (2.0-8.3) x10*3/uL Absolute Nucleated RBC 0.000 (0.0-0.012) X10*3/uL Nucleated RBC % (auto) 0.0 (0.0-0.2) /100WBC Sodium 140 (135-145) mmol/L Potassium 4.1 (3.3-5.1) mmol/L Chloride 104 (96-108) mmol/L Carbon Dioxide 25 (22-29) mmol/L Anion Gap 15 (12-20) BUN 11 (9-16) mg/dL Creatinine 0.99 (0.5-1.4) mg/dL Estim Creat Clear Calc 129.1 Estimated GFR > 60 Random Glucose 92 (60-115) mg/dL Calcium 9.6 (8.4-10.2) mg/dL Total Bilirubin 0.4 (0.0-1.0) mg/dL AST 16 (5-37) U/L ALT 18 (0-40) U/L Alkaline Phosphatase 118 H (39-117) U/L Total Protein 8.0 (6.5-8.0) g/dL Albumin 4.2 (3.5-5.0) g/dL Influenza Type A (PCR) NEGATIVE (Negative) Influenza Type B (PCR) NEGATIVE (Negative) RSV RNA Qual (PCR) NEGATIVE (Negative) SARS-CoV-2 RNA (RT-PCR) NEGATIVE (Negative) S. pyogenes GrpA VIVIEN Negative (Negative) Independent Interpretation I performed an independent interpretation of an: Plain X-Ray (normal ) Radiology Impression Discussion of test interpretation with radiology: I have reviewed the radiologist's reading. Prescription Management I considered prescription management with: Other Discharge Plan Discharge Clinical Impression: Esophagitis Patient Disposition: Home, Self-Care Instructions: Esophagitis (ED) Additional Instructions: return for any worsening symptoms or concerns NO IBUPROFEN TYLENOL is OKAY take medications as prescribed Prescriptions: New omeprazole 20 mg capsule,delayed release(DR/EC) 20 mg PO BID Qty: 60 0RF sucralfate [Carafate] 100 mg/mL suspension 10 ml PO BID 10 Days Qty: 200 0RF No Action benzonatate [Tessalon Perles] 100 mg capsule 100 mg PO TID PRN (Reason: cough) Qty: 14 0RF prednisone 20 mg tablet 40 mg PO DAILY Qty: 10 0RF diphenhydramine HCl [Benadryl Allergy] 25 mg tablet 50 mg PO QID PRN (Reason: allergic reaction) Qty: 20 0RF diphenhydramine HCl [Benadryl] 25 mg capsule 50 mg PO Q6H PRN (Reason: allergic reaction) Qty: 20 0RF prednisone 20 mg tablet 40 mg PO DAILY Qty: 10 0RF polyethylene glycol 3350 [Miralax] 17 gram/dose powder 17 g PO DAILY Qty: 510 0RF ibuprofen 600 mg tablet 600 mg PO Q6H PRN (Reason: fever or pain) Qty: 30 0RF prednisone 20 mg tablet 40 mg PO DAILY 5 Days Qty: 10 0RF diphenhydramine HCl [Benadryl] 25 mg capsule 25 mg PO TID PRN (Reason: allergic reaction) Qty: 20 0RF epinephrine [EpiPen 2-Junior] 0.3 mg/0.3 mL auto-injector 0.3 mg IM Q4H PRN (Reason: anaphylaxis) Qty: 2 0RF [place] [facility] [place] [facility] [place] [facility] [place] Group[place] Stand Alone Forms: Work/School Release Print Language: Turkish
[2024-03-29 17:08] LABS: MANUAL DIFF FLAG NO
[2024-03-29 17:12] LABS: Basophils Percent Auto 0.3 % (0-2); Eosinophils Absolute Auto 0.1 X10*3/uL (0.0-0.4); Eosinophils Percent Auto 0.7 % (0-4); Hematocrit 39.1 % (42.0-52.0); Hemoglobin 12.4 g/dl (14.0-18.0); Imm Gran Abs Auto 0.05 X10*3/uL (0.00-0.03); Imm Gran Pct Auto 0.5 % (0.0-0.4); Lymphocytes Absolute Auto 0.9 X10*3/uL (1.2-4.9); Lymphocytes Percent Auto 9.5 % (20-40); Mean Corpuscular HGB Conc 31.7 g/dl (31.0-36.0); Mean Corpuscular Hemoglobin 24.7 pg (27.0-33.0); Mean Corpuscular Volume 77.9 fL (80.0-98.0); Mean Platelet Volume 9.6 fL (9.4-12.4); Monocytes Percent Auto 10.3 % (2-11); Neutrophils Absolute Auto 7.7 x10*3/uL (2.0-8.3); Neutrophils Percent Auto 78.7 % (45-73); Platelet Count 401 X10*3/uL (160-400); Red Blood Count 5.02 X10*6/uL (4.60-5.80); Red Cell Distribution Width 13.8 % (11.0-16.0); White Blood Count 9.8 X10*3/uL (4.8-10.8)
[2024-03-29 17:19] LABS: IDNOW Serial# 08D9AD1C; Strep A Nucleic Acid Negative (Negative)
[2024-03-29 17:29] LABS: Alanine Aminotransferase 18 U/L (0-40); Albumin Level 4.2 g/dL (3.5-5.0); Alkaline Phosphatase 118 U/L (39-117); Anion Gap 15 (12-20); Aspartate Amino Transferase 16 U/L (5-37); Bilirubin Total 0.4 mg/dL (0.0-1.0); Blood Urea Nitrogen 11 mg/dL (9-16); Calcium 9.6 mg/dL (8.4-10.2); Carbon Dioxide 25 mmol/L (22-29); Chloride 104 mmol/L (96-108); Creatinine Clr Calc Pharmacy 129.1; Estimated Glomerular Filt Rate > 60; Glucose Random 92 mg/dL (60-115); Potassium 4.1 mmol/L (3.3-5.1); Sodium 140 mmol/L (135-145)
[2024-03-29 18:01] LABS: Influenza A PCR NEGATIVE (Negative); Influenza B PCR NEGATIVE (Negative); Resp Syncy Virus RNA Qual PCR NEGATIVE (Negative); SARS COV2 PCR INHOUSE NEGATIVE (Negative)
[2024-03-29] MEDS: Lidocaine HCl Viscous 2 % 15 ML SOLUTION MUCOUS MEM (21:42)
[2024-03-29] MEDS: Magnesium Hydrox/Alum Hydrox 30 ML ORAL.SUSP 15 ML PO (21:42)
[2024-03-29 21:56] VITALS: BP 133/82; PULSE 84; RESP 16; TEMP 36.7; O2SAT 99
[2024-03-29 22:36] VITALS: BP 133/82; PULSE 84; RESP 16; TEMP 36.7; O2SAT 99
== END 2024-03-29 22:38 | disposition home or self-care (01) ==
PROVIDERS: Registered Nurse Emergency; Emergency Provider Emergency Medicine; PCP Pediatrics
DX: K20.90 Esophagitis, unspecified without bleeding (principal); Z03.818 Encounter for observation for suspected exposure to other biological agents ruled out; Z79.899 Other long term (current) drug therapy
CPT/HCPCS: 0241U; 36415; 71046; 80053; 85025; 87651; 99283; 99284

== ENCOUNTER 2024-05-26 01:21 | Emergency (ER) | payer OTHER, SELFPAY ==
--- NOTE | ~2024-05-26 | XR_ITS ---
EXAMINATION: XR ABDOMEN KUB CLINICAL INDICATION: constipation COMPARISON: None available. TECHNIQUE: AP view of the abdomen. FINDINGS: The bowel gas pattern is normal with no evidence of ileus or obstruction. There is scattered retained stool. No unusual soft tissue calcifications are noted. The bones are unremarkable. XR/XR KUB IMPRESSION: Nonobstructive bowel gas pattern. Scattered retained stool. Electronically signed by: Jimmy Molina MD 05/26/2024 02:01 AM BRAYAN
[2024-05-26 01:24] VITALS: BP 126/73; PULSE 84; RESP 18; TEMP 36.8; O2SAT 99; BMI 27.1
--- NOTE | 2024-05-26 01:36 | ED_ITS ---
HPI - Abdominal Pain General Chief Complaint: Abdominal Pain Stated Complaint: abd pain Time Seen by Provider: 05/26/24 01:32 Source: patient Mode of arrival: ambulatory Limitations: no limitations History of Present Illness ED Provider: carlito ALFARO narrative: Patient has chronic abdominal for several months was seen here in 04/20 workup was negative had previous CT scans which were also negative comes here with nonspecific diffuse abdominal pain history of constipation no vomiting no fever no urinary symptom Related Data Previous Rx's ?Medication ?Instructions ?Recorded benzonatate 100 mg capsule 100 mg PO TID PRN cough #14 caps 06/23/20 (Tessalon Perles) diphenhydramine HCl 25 mg tablet 50 mg (2 x 25 mg) PO QID PRN 02/26/21 (Benadryl Allergy) allergic reaction #20 tabs prednisone 20 mg tablet 40 mg (2 x 20 mg) PO DAILY #10 tabs 02/26/21 diphenhydramine HCl 25 mg capsule 50 mg (2 x 25 mg) PO Q6H PRN 06/20/21 (Benadryl) allergic reaction #20 caps prednisone 20 mg tablet 40 mg (2 x 20 mg) PO DAILY #10 tabs 06/20/21 ibuprofen 600 mg tablet 600 mg PO Q6H PRN fever or pain 10/28/22 #30 tabs polyethylene glycol 3350 17 17 g PO DAILY #510 grams 10/28/22 gram/dose oral powder (Miralax) diphenhydramine HCl 25 mg capsule 25 mg PO TID PRN allergic reaction 12/24/23 (Benadryl) #20 caps epinephrine 0.3 mg/0.3 mL 0.3 mg (0.3 mL) IM Q4H PRN 12/24/23 injection, auto-injector (EpiPen anaphylaxis #2 ea 2-Junior) prednisone 20 mg tablet 40 mg (2 x 20 mg) PO DAILY 5 days 12/24/23 #10 tabs omeprazole 20 mg capsule,delayed 20 mg PO BID #60 caps 03/29/24 release sucralfate 100 mg/mL oral 10 ml PO BID 10 days #200 mL 03/29/24 suspension (Carafate) dicyclomine 20 mg tablet 20 mg PO TID #20 tabs 05/26/24 omeprazole 20 mg capsule,delayed 20 mg PO DAILY #30 caps 05/26/24 release sucralfate 1 gram tablet 1 g PO TID #90 tabs 05/26/24 Allergies Allergy/AdvReac Type Severity Reaction Status Date / Time No Known Allergies Allergy Verified 05/26/24 01:26 [No Known Allergies*] Review of Systems Review of Systems Yes all other systems are reviewed and are negative [facility] Past Medical History Medical History No pertinent past medical history Social History Social History Alcohol intake: current Alcohol intake frequency: holidays/special occasions only Patient Tobacco Use Status: Never used Tobacco Smoked in Last 30 Days: No Use of substances other than those prescribed or required for medical reasons: No Advance Directives: No Physical Exam ED Vital Signs: Vital Signs - 24 hr 05/26/24 01:24 05/26/24 02:40 Temperature 98.3 F 98.1 F Pulse Rate 84 72 Respiratory Rate 18 18 Blood Pressure 126/73 122/68 Pulse Oximetry 99 99 Oxygen Delivery Method Room Air Room Air BMI result Body Mass Index 27.1 Appearance: Alert. Oriented X3. No acute distress. Eyes: No pallor or icterus ENT: Pharynx normal. Oral Mucosa moist Neck: Normal inspection. Neck supple. CVS: Normal heart rate and rhythm. Pulses normal. Respiratory: No respiratory distress. Equal air entry bilateral, no wheezing/rales/rhonchi Abdomen: Soft and mild diffuse tenderness. Bowel sounds are present, no mass palpable, no CVA tenderness Skin: Skin warm and dry. Normal skin color. Normal skin turgor. Extremities: No lower extremity edema. No calf tenderness Neuro: Oriented X 3. No motor deficit. Medical Decision Making Medical Decision Making [facility] Narrative: Patient has chronic abdominal pain etiology not clear likely IBS will prescribe dicyclomine Medications Administered Discontinued Medications Generic Name Dose Route Start Last Admin Trade Name Freq PRN Reason Stop Dose Admin Al Hydroxide/Mg Hydroxide 30 ml 05/26/24 02:27 05/26/24 02:47 Magnesium Hydrox/Alum Hydrox 30 Ml Oral.Susp PO 05/26/24 02:28 30 ml ONCE ONE Administration Dicyclomine HCl 20 mg 05/26/24 01:42 05/26/24 01:57 Dicyclomine Hcl 10 Mg Capsule PO 05/26/24 01:43 20 mg ONCE ONE Administration Discharge Plan Discharge Clinical Impression: Abdominal pain, chronic, generalized, Constipation Patient Disposition: Home, Self-Care Instructions: Constipation (DC), Chronic Abdominal Pain (ED) Additional Instructions: Drink plenty of fluids Continue omeprazole Start taking dicyclomine 1 tablet every 8 hours as needed for abdominal pain Continue take your stool softener Prescriptions: New dicyclomine 20 mg tablet 20 mg PO TID Qty: 20 0RF sucralfate 1 gram tablet 1 g PO TID Qty: 90 0RF omeprazole 20 mg capsule,delayed release(DR/EC) 20 mg PO DAILY Qty: 30 0RF No Action benzonatate [Tessalon Perles] 100 mg capsule 100 mg PO TID PRN (Reason: cough) Qty: 14 0RF prednisone 20 mg tablet 40 mg PO DAILY Qty: 10 0RF diphenhydramine HCl [Benadryl Allergy] 25 mg tablet 50 mg PO QID PRN (Reason: allergic reaction) Qty: 20 0RF diphenhydramine HCl [Benadryl] 25 mg capsule 50 mg PO Q6H PRN (Reason: allergic reaction) Qty: 20 0RF prednisone 20 mg tablet 40 mg PO DAILY Qty: 10 0RF polyethylene glycol 3350 [Miralax] 17 gram/dose powder 17 g PO DAILY Qty: 510 0RF ibuprofen 600 mg tablet 600 mg PO Q6H PRN (Reason: fever or pain) Qty: 30 0RF prednisone 20 mg tablet 40 mg PO DAILY 5 Days Qty: 10 0RF diphenhydramine HCl [Benadryl] 25 mg capsule 25 mg PO TID PRN (Reason: allergic reaction) Qty: 20 0RF epinephrine [EpiPen 2-Junior] 0.3 mg/0.3 mL auto-injector 0.3 mg IM Q4H PRN (Reason: anaphylaxis) Qty: 2 0RF omeprazole 20 mg capsule,delayed release(DR/EC) 20 mg PO BID Qty: 60 0RF sucralfate [Carafate] 100 mg/mL suspension 10 ml PO BID 10 Days Qty: 200 0RF Referrals: rBent Mcgregor MD [Physician] - 2 weeks Stand Alone Forms: Work/School Release Interventions: ED Discharge Assessment Last Done: 05/26/24 02:40 Discharge Date/Time: 05/26/24 03:32 Print Language: Khmer
[2024-05-26] MEDS: Dicyclomine HCl 10 MG CAPSULE 20 MG PO (01:57)
[2024-05-26 02:40] VITALS: BP 122/68; PULSE 72; RESP 18; TEMP 36.7; O2SAT 99
[2024-05-26] MEDS: Magnesium Hydrox/Alum Hydrox 30 ML ORAL.SUSP PO (02:47)
--- NOTE | 2024-05-26 03:28 | PC.NURSE ---
Friend with pt came to front office manager staff stating that pt had just thrown up all the medications yall just gave him . Primary RN and MD Potter made aware. I went out to the front to greet the friend to ask if pt wanted to come back in for further evaluation and stated they could go back to the same room. She stated okay and walked out of the front door to go and get the pt out of the car, after waiting approximately 2-4 minutes they did not come back in. A car was visualized driving out of the parking lot. MD and primary RN made aware.
== END 2024-05-26 03:32 | disposition home or self-care (01) ==
PROVIDERS: Emergency Provider Internal Medicine
DX: R10.2 Pelvic and perineal pain (principal); K59.00 Constipation, unspecified
CPT/HCPCS: 74018; 99283

== ENCOUNTER 2024-06-05 21:48 | Emergency (ER) | payer SELFPAY ==
[2024-06-05 21:55] VITALS: BP 114/60; PULSE 93; RESP 16; TEMP 37.4; O2SAT 100; BMI 26.6
[2024-06-05 22:07] LABS: MANUAL DIFF FLAG NO
[2024-06-05 22:08] LABS: Basophils Percent Auto 0.2 % (0-2); Eosinophils Absolute Auto 0.2 X10*3/uL (0.0-0.4); Eosinophils Percent Auto 1.7 % (0-4); Hematocrit 35.3 % (42.0-52.0); Imm Gran Abs Auto 0.04 X10*3/uL (0.00-0.03); Imm Gran Pct Auto 0.3 % (0.0-0.4); Lymphocytes Absolute Auto 0.8 X10*3/uL (1.2-4.9); Lymphocytes Percent Auto 5.8 % (20-40); Mean Corpuscular HGB Conc 31.2 g/dl (31.0-36.0); Mean Corpuscular Hemoglobin 23.3 pg (27.0-33.0); Mean Corpuscular Volume 74.6 fL (80.0-98.0); Mean Platelet Volume 9.4 fL (9.4-12.4); Monocytes Absolute Auto 1.2 X10*3/uL (0.1-1.2); Monocytes Percent Auto 8.7 % (2-11); Neutrophils Absolute Auto 11.3 x10*3/uL (2.0-8.3); Neutrophils Percent Auto 83.3 % (45-73); Platelet Count 448 X10*3/uL (160-400); Red Blood Count 4.73 X10*6/uL (4.60-5.80); Red Cell Distribution Width 14.8 % (11.0-16.0); White Blood Count 13.6 X10*3/uL (4.8-10.8)
[2024-06-05 22:21] LABS: Alanine Aminotransferase 17 U/L (0-40); Albumin Level 4.2 g/dL (3.5-5.0); Alkaline Phosphatase 99 U/L (39-117); Anion Gap 10 (12-20); Aspartate Amino Transferase 17 U/L (5-37); Bilirubin Total 0.3 mg/dL (0.0-1.0); Blood Urea Nitrogen 13 mg/dL (9-16); Calcium 9.8 mg/dL (8.4-10.2); Carbon Dioxide 27 mmol/L (22-29); Chloride 104 mmol/L (96-108); Creatinine Clr Calc Pharmacy 108.3; Estimated Glomerular Filt Rate > 60; Glucose Random 134 mg/dL (60-115); Lipase 15 U/L (8-78); Sodium 137 mmol/L (135-145); Total Protein 7.9 g/dL (6.5-8.0)
[2024-06-05 23:50] LABS: Appearance Urine Clear; Color Urine Yellow; Glucose Urine UA Negative (Negative); Leukocyte Esterase Urine Negative (Negative); Nitrite Urine Negative (Negative); PH 6.5 (5.0-9.0); Specific Gravity - Urine 1.025 (1.005-1.025); Urine Blood Negative (Negative); Urine Ketones Trace mg/dL (Negative); Urine Protein Negative (Neg-Trace)
[2024-06-06] LABS: Bacteria Urine None Seen (None Seen); Hyaline Casts Urine 0-2 /LPF (0-2); RBC Urine 0-2 /HPF (0-2); Squamous Epithelial Cell Urine 0-2 /HPF (0-2); WBC Urine 0-5 /HPF (0-5)
--- NOTE | 2024-06-06 00:02 | ED_ITS ---
HPI - Abdominal Pain General Chief Complaint: Abdominal Pain Stated Complaint: abd pain Time Seen by Provider: 06/05/24 23:46 Source: patient Mode of arrival: ambulatory Limitations: no limitations History of Present Illness ED Provider: Aide Raza NP HPI narrative: Patient is a 23-year-old male who presents emergency department for evaluation. He reports that he continues to experience epigastric pain with nausea and intermittent nonbloody bilious emesis. At times has exacerbated with particular foods that he eats and finds that the pain typically occurs about 2-3 hours after eating. He states he has been seen in the emergency department a couple of times, has received medications without much improvement. Reports that he is feeling somewhat constipated, having bowel movements every few days rather than daily. States that over the past 3 months he has lost about 15 lb but does admit he is eating much less than he typically would have previously. He recently moved from [place] about 1.5-2 months ago. He was not seeking evaluation there. He recently has been consuming a lot of oranges as family had told him that may help if he consumes more vitamin-C, and in fact he has noticed his pain to be worse. He does not currently have health insurance but anticipates that his new insurance will begin 06/28/2024. Reports he has been seen in the emergency department twice for similar symptoms 1 time he was told it was due to acid reflux another time he was told it was due to spasming of his intestines. Reports a single episode of small amount of blood noted on the toilet tissue after having a bowel movement about 6 months ago otherwise without hematochezia or melena. Denies genitourinary symptoms. Denies concern for sexually transmitted infections. Denies any scrotal pain or swelling. He denies night sweats, fevers, chills, chest pain, shortness of breath, numbness or tingling of the extremities. Related Data Previous Rx's ?Medication ?Instructions ?Recorded benzonatate 100 mg capsule 100 mg PO TID PRN cough #14 caps 06/23/20 (Tessalon Perles) diphenhydramine HCl 25 mg tablet 50 mg (2 x 25 mg) PO QID PRN 02/26/21 (Benadryl Allergy) allergic reaction #20 tabs prednisone 20 mg tablet 40 mg (2 x 20 mg) PO DAILY #10 tabs 02/26/21 diphenhydramine HCl 25 mg capsule 50 mg (2 x 25 mg) PO Q6H PRN 06/20/21 (Benadryl) allergic reaction #20 caps prednisone 20 mg tablet 40 mg (2 x 20 mg) PO DAILY #10 tabs 06/20/21 ibuprofen 600 mg tablet 600 mg PO Q6H PRN fever or pain 10/28/22 #30 tabs polyethylene glycol 3350 17 17 g PO DAILY #510 grams 10/28/22 gram/dose oral powder (Miralax) diphenhydramine HCl 25 mg capsule 25 mg PO TID PRN allergic reaction 12/24/23 (Benadryl) #20 caps epinephrine 0.3 mg/0.3 mL 0.3 mg (0.3 mL) IM Q4H PRN 12/24/23 injection, auto-injector (EpiPen anaphylaxis #2 ea 2-Junior) prednisone 20 mg tablet 40 mg (2 x 20 mg) PO DAILY 5 days 12/24/23 #10 tabs omeprazole 20 mg capsule,delayed 20 mg PO BID #60 caps 03/29/24 release sucralfate 100 mg/mL oral 10 ml PO BID 10 days #200 mL 03/29/24 suspension (Carafate) dicyclomine 20 mg tablet 20 mg PO TID #20 tabs 05/26/24 omeprazole 20 mg capsule,delayed 20 mg PO DAILY #30 caps 05/26/24 release sucralfate 1 gram tablet 1 g PO TID #90 tabs 05/26/24 aluminum-mag hydroxide-simethicone 10 ml PO QID PRN dyspepsia #3,000 06/06/24 200 mg-200 mg-20 mg/5 mL oral susp mL (Maalox Advanced) omeprazole 20 mg capsule,delayed 20 mg PO BID #60 caps 06/06/24 release Allergies Allergy/AdvReac Type Severity Reaction Status Date / Time No Known Allergies Allergy Verified 06/05/24 21:57 [No Known Allergies*] Review of Systems Review of Systems Yes all other systems are reviewed and are negative [facility] Past Medical History Attestation statement: The following information was validated with the patient. Source: old records reviewed Medical History No pertinent past medical history Social History Social History Alcohol intake: current Alcohol intake frequency: holidays/special occasions only Patient Tobacco Use Status: Never used Tobacco Physical Exam ED Vital Signs: Vital Signs - 24 hr 06/05/24 21:55 Temperature 99.3 F Pulse Rate 93 Respiratory Rate 16 Blood Pressure 114/60 Pulse Oximetry 100 Oxygen Delivery Method Room Air BMI result Body Mass Index 26.6 Appearance: Alert.?Oriented to person, place and time. No acute distress.?Normal affect.?? Neck: Normal inspection.? Neck supple.?? CVS: Heart sounds normal. Normal heart rate and rhythm.? Pulses normal.?? Respiratory: No respiratory distress.? Lung sounds clear to auscultation bilaterally?? Abdomen: Soft and non-tender. No rebound tenderness at McBurney's point. Negative psoas sign. Negative Rovsing sign. Negative Baker sign. No CVAT. Normoactive bowel sounds. No pulsatile mass.?? Skin: Skin warm and dry.? Normal skin color.? Extremities: No lower extremity edema.? Neuro: Moves all extremities spontaneously. Sensation intact bilaterally. Ambulates with normal steady gait. Medical Decision Making Medical Decision Making MDM Narrative: Patient is a 23-year-old male who presents emergency department for evaluation of persistent abdominal pain intermittent nausea and vomiting, decreased appetite as per HPI. Symptoms have been persistent over the past few months, unfortunately does not have insurance to follow-up outpatient with Gastroenterology. At this time abdominal examination is benign, overall without signs of systemic toxicity found to be afebrile without tachycardia, no hypotension. Examination not consistent with acute abdomen, no peritoneal signs; no tenderness upon light palpation, no rebound tenderness, no guarding, no percussive tenderness. No associated chest pain shortness of breath or URI symptoms to suggest pneumonia, no clinical evidence of DVT or personal history of VTE/malignancy to suggest pulmonary embolism. No high-risk past medical history to suggest myocardial infarction and is without chest pain, less likely AAA, aortic dissection. No abdominal tenderness upon palpation, negative Baker sign, unlikely acute cholecystitis, choledocholithiasis, no fever or jaundice to suggest acute cholangitis, may possibly be biliary colic secondary to cholelithiasis. Pain is primarily localized to the epigastric region, although currently he is without tenderness , his reported history is concerning for gastritis or possible PUD given the exacerbation of pain a few hours after eating. Denies pain to the right upper quadrant, although cholelithiasis/biliary colic is a possibility. Denies excessive alcohol consumption, history of diabetes, lower suspicion acute pancreatitis. On review record he was seen 03/29/2024 discharged with omeprazole 20 mg twice daily as well as Carafate twice daily. On 05/26/2024 who is prescribed omeprazole 20 mg daily, Carafate times daily, and dicyclomine 3 times daily. Reports that he has been compliant with these and despite continues to have persistent symptoms. Differential Diagnosis Differential Diagnoses: The differential diagnosis associated with the presentation includes (See narrative above) Admission/Observation Consideration of admission/observation: Escalation of care including admission/observation considered (See narrative above ) Lab Data MDM Lab Attestation statement: I reviewed the patient's lab results. 06/05/24 22:03 06/05/24 22:03 Labs: Lab Results 06/05/24 06/05/24 Range/Units 22:03 23:43 WBC 13.6 H (4.8-10.8) X10*3/uL RBC 4.73 (4.60-5.80) X10*6/uL Hgb 11.0 L (14.0-18.0) g/dl Hct 35.3 L (42.0-52.0) % MCV 74.6 L (80.0-98.0) fL MCH 23.3 L (27.0-33.0) pg MCHC 31.2 (31.0-36.0) g/dl RDW 14.8 (11.0-16.0) % Plt Count 448 H (160-400) X10*3/uL MPV 9.4 (9.4-12.4) fL Immature Gran % (Auto) 0.3 (0.0-0.4) % Neut % (Auto) 83.3 H (45-73) % Lymph % (Auto) 5.8 L (20-40) % [place] % (Auto) 8.7 (2-11) % Eos % (Auto) 1.7 (0-4) % Baso % (Auto) 0.2 (0-2) % Lymph # (Auto) 0.8 L (1.2-4.9) X10*3/uL [place] # (Auto) 1.2 (0.1-1.2) X10*3/uL Eos # (Auto) 0.2 (0.0-0.4) X10*3/uL Baso # (Auto) 0.0 (0.0-0.2) X10*3/uL Abs Immat Gran (auto) 0.04 H (0.00-0.03) X10*3/uL Absolute Neuts (auto) 11.3 H (2.0-8.3) x10*3/uL Absolute Nucleated RBC 0.000 (0.0-0.012) X10*3/uL Nucleated RBC % (auto) 0.0 (0.0-0.2) /100WBC Sodium 137 (135-145) mmol/L Potassium 4.0 (3.3-5.1) mmol/L Chloride 104 (96-108) mmol/L Carbon Dioxide 27 (22-29) mmol/L Anion Gap 10 L (12-20) BUN 13 (9-16) mg/dL Creatinine 1.06 (0.5-1.4) mg/dL Estim Creat Clear Calc 108.3 Estimated GFR > 60 Random Glucose 134 H (60-115) mg/dL Calcium 9.8 (8.4-10.2) mg/dL Total Bilirubin 0.3 (0.0-1.0) mg/dL AST 17 (5-37) U/L ALT 17 (0-40) U/L Alkaline Phosphatase 99 (39-117) U/L Total Protein 7.9 (6.5-8.0) g/dL Albumin 4.2 (3.5-5.0) g/dL Lipase 15 (8-78) U/L Urine Color Yellow Urine Appearance Clear Urine pH 6.5 (5.0-9.0) Ur Specific [place] 1.025 (1.005-1.025) Urine Protein Negative (Neg-Trace) mg/dL Urine Glucose (UA) Negative (Negative) mg/dL Urine Ketones Trace (Negative) mg/dL Urine Blood Negative (Negative) Urine Nitrite Negative (Negative) Ur Leukocyte Esterase Negative (Negative) Urine RBC 0-2 (0-2) /HPF Urine WBC 0-5 (0-5) /HPF Ur Squamous Epith Cells 0-2 (0-2) /HPF Urine Bacteria None Seen (None Seen) Hyaline Casts 0-2 (0-2) /LPF Discharge Plan Discharge Patient Disposition: Home, Self-Care Instructions: Diet for Stomach Ulcers and Gastritis (ED), Gastroesophageal Reflux Disease (ED) Additional Instructions: Avoid triggers such as fatty foods, spicy foods, tomatoes, onions, coffee, tea, chocolate, and alcohol. Remaining upright after meals for 1-2 hours. Avoid eating at least 3 hours before bedtime. Try sleeping on an incline if possible. Refrain from use of [id number] NSAIDs such as Motrin/Advil/ibuprofen, Aleve/naproxen, aspirin as this may worsen your symptoms as well. Be sure that you are taking Prilosec/omeprazole 1st thing in the morning at least 30 minutes prior to consuming food. Take 2nd dose in the evening prior to dinner. Take Maalox as needed for persistent symptoms throughout the day. As discussed it is important that you establish your healthcare insurance so that you can follow up accordingly with gastroenterology for further evaluation and treatment, as mentioned they may consider further testing and possibly endoscopy/copy for your persistent symptoms. You may return to emergency department with any new or worsening symptoms or concerns. Prescriptions: New omeprazole 20 mg capsule,delayed release(DR/EC) 20 mg PO BID Qty: 60 0RF alum-mag hydroxide-simeth [Maalox Advanced] 200-200-20 mg/5 mL suspension 10 ml PO QID PRN (Reason: dyspepsia) Qty: 3000 0RF Rx Instructions: administer between meals and at bedtime No Action benzonatate [Tessalon Perles] 100 mg capsule 100 mg PO TID PRN (Reason: cough) Qty: 14 0RF prednisone 20 mg tablet 40 mg PO DAILY Qty: 10 0RF diphenhydramine HCl [Benadryl Allergy] 25 mg tablet 50 mg PO QID PRN (Reason: allergic reaction) Qty: 20 0RF diphenhydramine HCl [Benadryl] 25 mg capsule 50 mg PO Q6H PRN (Reason: allergic reaction) Qty: 20 0RF prednisone 20 mg tablet 40 mg PO DAILY Qty: 10 0RF polyethylene glycol 3350 [Miralax] 17 gram/dose powder 17 g PO DAILY Qty: 510 0RF ibuprofen 600 mg tablet 600 mg PO Q6H PRN (Reason: fever or pain) Qty: 30 0RF prednisone 20 mg tablet 40 mg PO DAILY 5 Days Qty: 10 0RF diphenhydramine HCl [Benadryl] 25 mg capsule 25 mg PO TID PRN (Reason: allergic reaction) Qty: 20 0RF epinephrine [EpiPen 2-Junior] 0.3 mg/0.3 mL auto-injector 0.3 mg IM Q4H PRN (Reason: anaphylaxis) Qty: 2 0RF omeprazole 20 mg capsule,delayed release(DR/EC) 20 mg PO BID Qty: 60 0RF sucralfate [Carafate] 100 mg/mL suspension 10 ml PO BID 10 Days Qty: 200 0RF dicyclomine 20 mg tablet 20 mg PO TID Qty: 20 0RF sucralfate 1 gram tablet 1 g PO TID Qty: 90 0RF omeprazole 20 mg capsule,delayed release(DR/EC) 20 mg PO DAILY Qty: 30 0RF Referrals: Physician,Unknown J [Primary Care Provider] - Print Language: [place]
[2024-06-06 01:30] VITALS: BP 120/87; PULSE 90; RESP 16; O2SAT 98
[2024-06-06 01:39] VITALS: BP 120/84; PULSE 90; RESP 16; TEMP -17.7; TEMP 0; O2SAT 98
== END 2024-06-06 01:45 | disposition home or self-care (01) ==
PROVIDERS: Emergency Provider Emergency Medicine
DX: K21.9 Gastro-esophageal reflux disease without esophagitis (principal); K29.70 Gastritis, unspecified, without bleeding; R10.13 Epigastric pain; R11.2 Nausea with vomiting, unspecified
CPT/HCPCS: 36415; 80053; 81001; 83690; 85025; 99283

== ENCOUNTER 2024-07-17 05:33 | Emergency (ER) | payer MEDICAID, SELFPAY ==
[2024-07-17 05:35] VITALS: BP 110/66; PULSE 67; RESP 16; TEMP 36.5; O2SAT 100; BMI 25.0
--- NOTE | 2024-07-17 07:58 | ED_ITS ---
HPI - General Adult General Chief complaint: General Medical Stated complaint: ileostomy popping/leaking, irritated Time Seen by Provider: 07/17/24 07:38 Source: patient, family and commercial project manager Mode of arrival: ambulatory Limitations: no limitations History of Present Illness ED Provider: DR. Torres HPI narrative: This is a 23-year-old male s/p colectomy with right-sided ileostomy on 06/13/24 done at [facility], patient noticed that there is some tenderness and redness with irritation around the ileostomy, otherwise the ileostomy is functioning with stool drainage and passing gas. Related Data Previous Rx's ?Medication ?Instructions ?Recorded benzonatate 100 mg capsule 100 mg PO TID PRN cough #14 caps 06/23/20 (Tessalon Perles) diphenhydramine HCl 25 mg tablet 50 mg (2 x 25 mg) PO QID PRN 02/26/21 (Benadryl Allergy) allergic reaction #20 tabs prednisone 20 mg tablet 40 mg (2 x 20 mg) PO DAILY #10 tabs 02/26/21 diphenhydramine HCl 25 mg capsule 50 mg (2 x 25 mg) PO Q6H PRN 06/20/21 (Benadryl) allergic reaction #20 caps prednisone 20 mg tablet 40 mg (2 x 20 mg) PO DAILY #10 tabs 06/20/21 ibuprofen 600 mg tablet 600 mg PO Q6H PRN fever or pain 10/28/22 #30 tabs polyethylene glycol 3350 17 17 g PO DAILY #510 grams 10/28/22 gram/dose oral powder (Miralax) diphenhydramine HCl 25 mg capsule 25 mg PO TID PRN allergic reaction 12/24/23 (Benadryl) #20 caps epinephrine 0.3 mg/0.3 mL 0.3 mg (0.3 mL) IM Q4H PRN 12/24/23 injection, auto-injector (EpiPen anaphylaxis #2 ea 2-Junior) prednisone 20 mg tablet 40 mg (2 x 20 mg) PO DAILY 5 days 12/24/23 #10 tabs omeprazole 20 mg capsule,delayed 20 mg PO BID #60 caps 03/29/24 release sucralfate 100 mg/mL oral 10 ml PO BID 10 days #200 mL 03/29/24 suspension (Carafate) dicyclomine 20 mg tablet 20 mg PO TID #20 tabs 05/26/24 omeprazole 20 mg capsule,delayed 20 mg PO DAILY #30 caps 05/26/24 release sucralfate 1 gram tablet 1 g PO TID #90 tabs 05/26/24 aluminum-mag hydroxide-simethicone 10 ml PO QID PRN dyspepsia #3,000 06/06/24 200 mg-200 mg-20 mg/5 mL oral susp mL (Maalox Advanced) omeprazole 20 mg capsule,delayed 20 mg PO BID #60 caps 06/06/24 release doxycycline hyclate 100 mg tablet 100 mg PO BID #14 tabs 07/17/24 Allergies Allergy/AdvReac Type Severity Reaction Status Date / Time No Known Allergies Allergy Verified 07/17/24 05:41 [No Known Allergies*] Review of Systems Review of Systems: All other systems are reviewed and are negative Constitutional: Reports as per HPI and Reports no additional constitutional complaints Eyes: Reports as per HPI and Reports no additional eye complaints Reports system reviewed and no additional complaints, except as documented Cardiovascular: Reports as per HPI and Reports no additional cardiovascular complaints Respiratory: Reports as per HPI and Reports no additional respiratory complaints Gastrointestinal: Reports as per HPI and Reports no additional gastrointestinal complaints Genitourinary: Reports no additional female genitourinary complaints Musculoskeletal: Reports no additional musculoskeletal complaints Skin/Breast: Reports system reviewed and no additional complaints, except as docu Psychiatric: Reports no additional psychiatric complaints Endocrine: Reports no additional endocrine complaints Hematologic/Lymphatic: Reports no additional hematologic/lymphatic complaints Allergic/Immunologic: Reports no additional allergic/immunologic complaints Reports system reviewed and no additional complaints, except as documented and Reports Abnormal speech present [facility] Past Medical History Medical History No pertinent past medical history Social History Social History Alcohol intake: current Alcohol intake frequency: holidays/special occasions only Patient Tobacco Use Status: Never used Tobacco Advance Directives: No Advance Directives Information Provided: Yes Do you have a plan to hurt others: No Plan Physical Exam ED Vital Signs: Vital Signs - 24 hr 07/17/24 05:35 Temperature 97.7 F Pulse Rate 67 Respiratory Rate 16 Blood Pressure 110/66 Pulse Oximetry 100 Oxygen Delivery Method Room Air BMI result Body Mass Index 25.0 Vital signs have been reviewed and appear to be correct. Blood pressure elevated. Heart rate normal. Respiratory rate normal. Temperature normal. Oxygen saturation normal. Appearance: Alert. Oriented X3. No acute distress. Head: Normal external exam. Normocephalic. Atraumatic. No Alt[place]irano signs noted. No raccoon eyes noted Eyes: PERRLA. EOMI. Conjunctiva and sclera normal. Eyelids normal. ENT: TM's Normal. Pharynx normal. Uvula midline. Moist mucous membranes. No trismus noted. No drooling noted. No muffled voice noted. Neck: Normal inspection. Neck supple. FROM. No adenopathy. Thyroid Normal. No meningeal signs. No neck mass noted. CVS: Normal heart rate and rhythm. Heart sound normal. No murmurs noted. Pulses normal throughout. Respiratory: No respiratory distress. Painless inspiration. Breath sounds normal. No wheezes/rales/rhonchi noted. Chest nontender. No accessory muscle usage noted or decreased air movement noted. Abdomen: Soft and nontender, right abdominal wall ileostomy, the ileostomy stump with a good pink color, mild redness, hotness and tenderness in the skin around ileostomy, ileostomy bag is full off brown stool and gas. Back: No CVA tenderness. Full range of motion noted. Skin: Skin warm and dry. Normal skin color. Normal skin turgor. No rashes/lesions/lacerations noted. Extremities: No lower extremity edema. Extremities exhibit normal range of motion. Extremities nontender. Neuro: Oriented X 3. Cranial nerve exam: II-XII are grossly intact No motor deficit. No sensory deficit. Reflexes normal. Course Reevaluation(s) Reevaluation #1: Mild cellulitis around the ileostomy bag, start on doxycycline, patient was instructed to follow-up with his surgeon in 1-2 days. Time: 08:04 Medical Decision Making Differential Diagnosis Differential Diagnoses: The differential diagnosis associated with the presentation includes (Ileostomy malfunction, ischemic ileostomy, cellulitis) Admission/Observation Consideration of admission/observation: Escalation of care including admission/observation considered Discharge Plan Discharge Clinical Impression: Ileostomy care, Cellulitis Patient Disposition: Home, Self-Care Instructions: Cellulitis (ED) Prescriptions: New doxycycline hyclate 100 mg tablet 100 mg PO BID Qty: 14 0RF No Action benzonatate [Tessalon Perles] 100 mg capsule 100 mg PO TID PRN (Reason: cough) Qty: 14 0RF prednisone 20 mg tablet 40 mg PO DAILY Qty: 10 0RF diphenhydramine HCl [Benadryl Allergy] 25 mg tablet 50 mg PO QID PRN (Reason: allergic reaction) Qty: 20 0RF diphenhydramine HCl [Benadryl] 25 mg capsule 50 mg PO Q6H PRN (Reason: allergic reaction) Qty: 20 0RF prednisone 20 mg tablet 40 mg PO DAILY Qty: 10 0RF polyethylene glycol 3350 [Miralax] 17 gram/dose powder 17 g PO DAILY Qty: 510 0RF ibuprofen 600 mg tablet 600 mg PO Q6H PRN (Reason: fever or pain) Qty: 30 0RF prednisone 20 mg tablet 40 mg PO DAILY 5 Days Qty: 10 0RF diphenhydramine HCl [Benadryl] 25 mg capsule 25 mg PO TID PRN (Reason: allergic reaction) Qty: 20 0RF epinephrine [EpiPen 2-Junior] 0.3 mg/0.3 mL auto-injector 0.3 mg IM Q4H PRN (Reason: anaphylaxis) Qty: 2 0RF omeprazole 20 mg capsule,delayed release(DR/EC) 20 mg PO BID Qty: 60 0RF sucralfate [Carafate] 100 mg/mL suspension 10 ml PO BID 10 Days Qty: 200 0RF dicyclomine 20 mg tablet 20 mg PO TID Qty: 20 0RF sucralfate 1 gram tablet 1 g PO TID Qty: 90 0RF omeprazole 20 mg capsule,delayed release(DR/EC) 20 mg PO DAILY Qty: 30 0RF omeprazole 20 mg capsule,delayed release(DR/EC) 20 mg PO BID Qty: 60 0RF alum-mag hydroxide-simeth [Maalox Advanced] 200-200-20 mg/5 mL suspension 10 ml PO QID PRN (Reason: dyspepsia) Qty: 3000 0RF Rx Instructions: administer between meals and at bedtime Print Language: Syrian
[2024-07-17 08:34] VITALS: BP 110/66; PULSE 67; RESP 16; TEMP 36.5; O2SAT 100
== END 2024-07-17 08:38 | disposition home or self-care (01) ==
PROVIDERS: Emergency Provider Emergency Medicine
DX: L03.311 Cellulitis of abdominal wall (principal); Z43.2 Encounter for attention to ileostomy
CPT/HCPCS: 99282; 99283

== ENCOUNTER 2024-08-22 08:54 | Emergency (ER) | payer MEDICAID, SELFPAY ==
--- OUTSIDE RECORDS SUMMARY | 2024-08-22 11:12 | XMS_ITS | Clinical Summary ---
Demographics Address [address] [place] [address] Home Phone Work Phone Mobile Phone Preferred Language es Marital Status Unknown Scientologist Affiliation Unknown Race White Ethnic Group or Author Organization [employer] Address [address] [place] [address] Care Team Providers Care Cane Packer Name Role Phone CorinneJacy mirza JAIR Primary Care Provider [phone] Allergies No known active allergies Medications No known medications Active Problems Problem Noted Date Diagnosed Date Acne 05/19/2023 05/19/2023 Dyssomnia 05/19/2023 05/19/2023 Encounters Date Type Department Care Team Description 05/26/2024 Orders Only [facility] External Provider, [facility] from Last 3 Months Immunizations Name Administration Dates Next Due DTaP 06/07/2019, 5,08/30/2002,02/15,2000 DTaP, 5 pertussis antigens 2000 HPV 9-Valent 08/14/2011 HPV, Unspecified 03/24/2014,10/19/2012 Hep A, ped/adol, 2 dose 12/01/2013,07/30/2011 Hep B, Adolescent or Pediatric 01/10/2002,2000,2000 HiB, unspecified 2000 Hib (PRP-T) 2000 IPV 08/27/2004, 1,2000,10/12 Influenza injectable quadriv alent preservative free 05/15/2016 MMR 08/26/2004,08/25/2001 Meningococcal MCV4P ACYW-135 08/14/2011,12/17/19 01,2000 Tdap 08/14/2011 Varicella 10/19/2012,08/25/2001 Social History Tobacco Use Types Packs/Day Years Used Date Smoking Tobacco: Never Smokeless Tobacco: Never Tobacco Cessation:Counseling Given: Not Answered Alcohol Use Standard Drinks/Week Comments Not Currently 0 (1 standard drink = 0.6 oz pur e alcohol) Depression Answer Date Recorded Patient Health Questionnaire-9 Score 0 10/30/2022 Housing Stability Answer Date Recorded What is your housing situation today? I have shireen rodriguez 05/03/[address] you li ve. Do you have problems with any of the following? None of the above 05/03/2023 Food Insecurity Answer Date Recorded Within the past 12 months, y ou worried that your food would run out before you got money to buy more: Never True 05/03/2023 Within the past 12 months,th e food you bought just didn't last and you didn't have enough money to get more: Never True 11/2022 Transportation Answer Date Recorded In the past 12 months, has l ack of transportation kept you from medical appts, meetings, work or from getting things needed for daily living? No 05/03/2023 Utilities Answer Date Recorded In the past 12 months, has t he electric, gas, oil or water company threatened to shut off services in your home? No 05/03/2023 Depression Answer Date Recorded Patient Health Questionnaire-2 Score 0 10/30/2022 Sex and Gender Information Value Date Recorded Sex Assigned at Male 04/27/2022 10:29 AM EDT Legal Sex Male 10:29 AM EDT Gender Identity Choose not to disclose 10:29 AM EDT Sexual Orientation Choose not to disclose 2021 10:29 AM EDT Last Filed Vital Signs Vital Sign Reading Time Taken Comments Blood Pressure 136/75 10/30/2022 1:21 PM EDT Pulse 74 10/30/2022 1:21 PM EDT Temperature 36.7 ??C (98 ??F) 10/30/2022 1:21 PM EDT Respiratory Rate 18 10/30/2022 1:21 PM EDT Oxygen Saturation 98% 10/30/2022 1:21 PM EDT Inhaled Oxygen Concentration - - Weight 91.9 kg (202 lb 8 oz) 10/30/2022 1:21 PM EDT Height 173.4 cm (5' 8.25 ) 10/30/2022 1:21 PM ED T Body Mass Index 30.56 10/30/2022 1:21 PM EDT Plan of Treatment Health Maintenance Due Date Last Done Comments HIV Screening 2000 Alcohol/Substance Use Screening 2012 Family Planning (PISQ) 2015 Hepatitis C Screening 2018 Chlamydia and Gonorrhea Screening 10/31/2023 10/30/2022 Depression Screening 10/31/2023 10/30/2022, 10/31/19 23 SDOH Screening 10/31/2023 10/30/2022 Tobacco Screening 10/31/2023 10/30/2022 COVID-19 Vaccine ( season) 2024 Influenza Vaccine (#1) 2024 05/15/2016 DTaP/Tdap/Td Vaccines (8 - Td or Tdap) 06/07/2029 06/07/2019, 08/14/2011, 08/26/2004, Additional history exists Zoster Vaccines (1 of 2) 2050 RSV Patients and Patients Aged 60 years or older (1 - 1-dose 75+ series) 2075 HIB Vaccines Aged Out 2000, 2000 No lo nger eligible based on patient's age to complete this topic Hepatitis B Vaccines Completed 01/10/2002, 2000, 2000 IPV Vaccines Completed 08/27/2004, 01/27, 2000, Additional history exists Meningococcal Vaccine Aged Out 08/14/2011 , 2000, 2000 No longer eligible based on patient's age to complete this topic Hepatitis A Vaccines Completed 12/01/2013, 07/30/19 12 HPV Vaccines Completed 03/24/2014, 09/27, 08/14/2011 Pneumococcal Vaccine: Pediatrics (0 to 5 Years) and At-Risk Patients (6 to 49) Years) Aged Out No longer eligible based on patient's age to complete this topic RSV under 20 months Aged Out No longe r eligible based on patient's age to complete this topic Rotavirus Vaccines Aged Out No longer eligible based on patient's age to complete this topic Procedures Procedure Name Priority Date/Time Associated Diagnosis Comments XR KUB AND UPRIGHT 2 VIEWS Routine 05/26/2024 1:42 AM EST CHLAMYDIA/N. GONORRHOEAE RNA, TMA, UROGENITAL Routine 10/30/2022 2:17 PM EDT Routine screening for STI (sexually transmitted infection) from Last 3 Months or Most Recently Relevant to Health Maintenance Results * XR KUB and Upright 2 Views (05/26/2024 1:42 AM EST) Anatomical Region Laterality Modality Radiographic Magi ging 05/26/2024 1:42 AM EST Narrative 05/26/2024 2:04 AM EST ? [facility] ?[address] ?[place] [address] ?XRay Report ? Signed ? Patient: Sheng Kennedy ?MR#: [id number] ?? [id number] ? : 2000 ?Acct:[id number] ? Age/Sex: 23 / M ?ADM Date: 05/26/24 ? Loc: HO.ED ? Attending Dr: ? Ordering Physician: Noel Potter MD ?? Date of Service: 05/26/24 ?? Procedure(s): XR KUB ?? Accession Number(s): [id number] ? cc: Kathe Orta MD; Noel Potter MD ? EXAMINATION: ?? XR ABDOMEN KUB ? CLINICAL INDICATION: ?? constipation ? COMPARISON: ?? None available. ? TECHNIQUE: ?? AP view of the abdomen. ? FINDINGS: ?? The bowel gas pattern is normal with no evidence of ileus or ?? obstruction. There is scattered retained stool. No unusual soft tissue ?? calcifications are noted. The bones are unremarkable. ? XR/XR KUB ?? IMPRESSION: ?? Nonobstructive bowel gas pattern. Scattered retained stool. ? Electronically signed by: ??Jimmy Molina MD ??05/26/2024 02:01 AM EST RP ? Dictated By: ?Jimmy Molina MD ? Signed By: ?<Electronically signed by Jimmy Molina MD in OV> ?05/26/24 0201 ? DD/ 0142 ? TD/TT: 05/26/24 0156 ? Software Packager: ? Procedure Note Donotuseinterpreter, Image - 05/29/2024 [facility] [address] [place] [address] XRay Report Signed Patient: Ash Kennedy#: [id number] : 2000Acct:[id number] Age/Sex: 23 / MADM Date: 05/26/24 Loc: HO.ED Attending Dr: Ordering Physician: Noel Potter MD Date of Service: 05/26/24 Procedure(s): XR KUB Accession Number(s): [id number] cc: Kateh Orta MD; Noel Potter MD EXAMINATION: XR ABDOMEN KUB CLINICAL INDICATION: constipation COMPARISON: None available. TECHNIQUE: AP view of the abdomen. FINDINGS: The bowel gas pattern is normal with no evidence of ileus or obstruction. There is scattered retained stool. No unusual soft tissue calcifications are noted. The bones are unremarkable. XR/XR KUB IMPRESSION: Nonobstructive bowel gas pattern. Scattered retained stool. Electronically signed by: Jimmy Molina MD 05/26/2024 02:01 AM [facility] Dictated By: Jimmy Molina MD Signed By: <Electronically signed by Jimmy Molina MD in OV> 05/26/24 0201 DD/ 0142 TD/TT: 05/26/24 0156 Software Packager: [facility] External Provider IMG XR PROCEDURES Final Result * Chlamydia/N. Gonorrhoeae RNA, TMA, Urogenitial (10/30/2022 2:17 PM EDT) Chlamydia trachomatis RNA, TMA, Urogenital NOT DETECTED NOT DETECTED [employer] [employer] Neisseria gonorrhoeae RNA, TMA, Urogenital NOT DETECTED NOT DETECTED [facility] [employer] (Always Message) [employer] Comment: The analytical performance characteristics of this assay, when used to test SurePath(TM) specimens have been determined by [facility]. The modifications have not been cleared or approved by the FDA. This assay has been validated pursuant to the CLIA regulations and is used for clinical purposes. For additional information, please refer to https://education.[employer].Intellijoule/faq/XUH685 (This link is being provided for information/ educational purposes only.) Urine, Random 10/30/2022 2:1 7 PM EDT 10/30/2022 2:17 PM EDT Narrative [facility] - 11/01/2022 8:16 PM EDT FASTING:UNKNOWN FASTING: UNKNOWN Monie Giordano [facility] MICROBIOLOGY - GENERAL DILIP JACOBO Final Result [facility] [address], [place] [address] [facility] [address] [place] [address] from Last 3 Months or Most Recently Relevant to Health Maintenance Insurance [facility] Care Teams Cane Packer Relationship Specialty Start Date End Date Jacy Boyle NP [address] [place] [id number] PCP - General Family Medicine 12/24/23
--- OUTSIDE RECORDS SUMMARY | 2024-08-22 11:12 | XMS_ITS | Clinical Summary ---
Author Organization [facility] Address [address] [place] [address] Care Team Providers Care Primer Inserting Machine Adjuster Name Role Phone Pcp, No Primary Care Provider Unavailabl e Allergies No known active allergies Encounters Date Type Department Care Team Description 07/16/2024 9:23 PM EST - 07/16/2024 10:33 PM EST Emergency [facility] Emergency Department [address] [place] [phone] Chanda Martell DO Encounter for ostomy care education (Primary Dx) Discharge Disposition: Home or Self Care 07/16/2024 Travel from Last 3 Months Social History Tobacco Use Types Packs/Day Years Used Date Smoking Tobacco: Never Assessed Sex and Gender Information Value Date Recorded Sex Assigned at Male 07/16/2024 9:29 PM EST Gender Identity Male 07/16/2024 9:29 PM EST Sexual Orientation Choose not to disclose 2024 9:29 PM EST Last Filed Vital Signs Vital Sign Reading Time Taken Comments Blood Pressure 124/65 07/16/2024 9:18 PM EST Pulse 69 07/16/2024 9:18 PM EST Temperature 36.6 ??C (97.9 ??F) 07/16/2024 9:18 PM ES T Respiratory Rate 18 07/16/2024 9:18 PM EST Oxygen Saturation 100% 07/16/2024 9:18 PM EST Inhaled Oxygen Concentration - - Weight - - Height - - Body Mass Index - - Plan of Treatment Health Maintenance Due Date Last Done Comments Hepatitis C Virus Screening 2000 HIV Screening 2013 HPV Vaccines (1 - Male 3-dos e series) 2015 DTaP/Tdap/Td Vaccines (1 - Tdap) 2019 Hepatitis B Vaccines (1 of 3 - 19+ 3-dose series) 2019 Influenza Vaccine 01/27/2024 05/15/2016 COVID-19 Vaccine (1 - 2023-2 5 season) 2024 Pneumococcal Vaccine: Pediat funmilayo (0-5 Years) and At-Risk Patients (6 to 49 Years) Aged Out No longer eligible b ased on patient's age to complete this topic Care Teams Primer Inserting Machine Adjuster Relationship Specialty Start Date End Date Pcp, No PCP - General General Medicine 07/16/24
--- OUTSIDE RECORDS SUMMARY | 2024-08-22 11:12 | XMS_ITS | Encounter Summary ---
Author Organization [employer] Address [address] [place] [address] Care Team Providers Care Nurse Specialist Name Role Phone Kourtney AlmaguerP Primary Care Provider [phone] Monie Giordano MULTIPLE PRESSURE RIVETER OPERATOR Primary Care Provider [phone] Jacy Boyle NP Primary Care Provider [phone] Reason for Visit * Reason Onset Date Comments triage 09/30/2022 Encounter Details Date Type Department Care Team (Late st Contact Info) Description 09/30/2022 Telephone [facility] [address] [place] [address] Kourtney Almaguer FNP [address] [place], [place] [id number] triage Social History Tobacco Use Types Packs/Day Years Used Date Smoking Tobacco: Never Assessed Sex and Gender Information Value Date Recorded Sex Assigned at Male 04/27/2022 10:29 AM EDT Legal Sex Male 10:29 AM EDT Gender Identity Choose not to disclose 10:29 AM EDT Sexual Orientation Choose not to disclose 2021 10:29 AM EDT documented as of this encounter Miscellaneous Notes * Telephone Encounter - Susy Fernandez RN - 09/30/2022 11:42 AM EDT Triage call Pt not at home, Cristiana took call and is on HIPPA. Pt reports increased back pain, middle to low location, for last 3 weeks. PT reports radiation of pain to leg Rashmiameira unaware of which leg. Pt is taking advil for pain with some relief and walks without difficulty. Neg for numbness or injury. Advised to come to [facility] today and Cristiana agrees with disposition. Home care reviewed. Protocol Used: Back Pain (Adult) Protocol-Based Disposition: See in Office or Video Visit within 3 Days Video visit not offered Positive Triage Questions: * Moderate back pain (e.g., interferes with normal activities) and present > 3 days * Pain radiates into the thigh or further down the leg * Patient wants to be seen * All higher-acuity triage questions were negative Care Advice Discussed: * Reassurance and Education - Back Pain * Cold or Heat * Sleep * Activity * Pain Medicines * Pain Medicines - Extra Notes and Warnings * Reasons To Call Back - Fever occurs - Numbness or weakness occurs, or bowel/bladder problems - Pain begins to shoot into the leg - Pain persists over 2 weeks - Pain becomes worse - You become worse * Telephone Encounter - Krystyna Frausto - 09/30/2022 11:28 AM EDT Symptom: Back Pain - Not From Injury Outcome: Schedule an appointment to be seen within 3 days Reason: No high acuity concerns reported by caller The caller accepted this outcome documented in this encounter Plan of Treatment Not on file documented as of this encounter Visit Diagnoses Not on filedocumented in this encounter Care Teams Nurse Specialist Relationship Specialty Start Date End Date Kourtney Almaguer FNP [address] [place] [address] PCP - General Family Medicine 12/16/21 02/04/23 Monie Giordano FNP [address] [place] [address] PCP - General Family Medicine 02/05/23 12/23/23 Jacy Boyle NP [address] [place] [address] PCP - General Family Medicine 12/24/23 documented as of this encounter
== END 2024-08-22 09:56 | disposition left against medical advice (07) ==
PROVIDERS: Emergency Provider Emergency Medicine
DX: K94.09 Other complications of colostomy (principal); Z53.21 Procedure and treatment not carried out due to patient leaving prior to being seen by health care provider

== ENCOUNTER 2024-08-24 18:29 | Emergency (ER) | payer MEDICAID, SELFPAY ==
--- NOTE | ~2024-08-24 | XR_ITS ---
CLINICAL HISTORY: low back pain 3 views lumbar spine Comparison: None Findings: Normal vertebral body alignment. No acute fractures or dislocation. L5-S1 there is disc space narrowing posteriorly. IMPRESSION: No acute findings. At L5-S1, there is disc space narrowing posteriorly. This document has been electronically signed by: Beni Linton MD on 08/24/2024 19:33:33
[2024-08-24 18:48] VITALS: BP 127/73; PULSE 73; RESP 18; TEMP 36.6; O2SAT 99; BMI 27.7
--- NOTE | 2024-08-24 18:55 | ED.GENADULT ---
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 Torres HPI narrative: a 24-year-old male came in for evaluation after a mechanical fall. Patient slipped on black ice fell backward landing on his back yesterday at 15:30, was able to ambulate, feels low back pain, no weakness or numbness. No head injury, no LOC, no weakness, no numbness, no CP, no SOB. Related Data Previous Rx's ?Medication ?Instructions ?Recorded benzonatate 100 mg capsule 100 mg PO TID PRN cough #14 caps 06/23/20 (Tessalon Perles) diphenhydramine HCl 25 mg tablet 50 mg (2 x 25 mg) PO QID PRN 02/26/21 (Benadryl Allergy) allergic reaction #20 tabs prednisone 20 mg tablet 40 mg (2 x 20 mg) PO DAILY #10 tabs 02/26/21 diphenhydramine HCl 25 mg capsule 50 mg (2 x 25 mg) PO Q6H PRN 06/20/21 (Benadryl) allergic reaction #20 caps prednisone 20 mg tablet 40 mg (2 x 20 mg) PO DAILY #10 tabs 06/20/21 ibuprofen 600 mg tablet 600 mg PO Q6H PRN fever or pain 10/28/22 #30 tabs polyethylene glycol 3350 17 17 g PO DAILY #510 grams 10/28/22 gram/dose oral powder (Miralax) diphenhydramine HCl 25 mg capsule 25 mg PO TID PRN allergic reaction 12/24/23 (Benadryl) #20 caps epinephrine 0.3 mg/0.3 mL 0.3 mg (0.3 mL) IM Q4H PRN 12/24/23 injection, auto-injector (EpiPen anaphylaxis #2 ea 2-Junior) prednisone 20 mg tablet 40 mg (2 x 20 mg) PO DAILY 5 days 12/24/23 #10 tabs omeprazole 20 mg capsule,delayed 20 mg PO BID #60 caps 03/29/24 release sucralfate 100 mg/mL oral 10 ml PO BID 10 days #200 mL 10/02/24 suspension (Carafate) dicyclomine 20 mg tablet 20 mg PO TID #20 tabs 05/26/24 omeprazole 20 mg capsule,delayed 20 mg PO DAILY #30 caps 05/26/24 release sucralfate 1 gram tablet 1 g PO TID #90 tabs 05/26/24 aluminum-mag hydroxide-simethicone 10 ml PO QID PRN dyspepsia #3,000 06/06/24 200 mg-200 mg-20 mg/5 mL oral susp mL (Maalox Advanced) omeprazole 20 mg capsule,delayed 20 mg PO BID #60 caps 06/06/24 release doxycycline hyclate 100 mg tablet 100 mg PO BID #14 tabs 07/17/24 ibuprofen 600 mg tablet 600 mg PO Q8H PRN pain #20 tabs 08/24/24 Allergies Allergy/AdvReac Type Severity Reaction Status Date / Time No Known Allergies Allergy Verified 08/24/24 18:53 [No Known Allergies*] Review of Systems Review of Systems: All other systems are reviewed and are negative Constitutional: Reports as per HPI and Reports no additional constitutional complaints Eyes: Reports as per HPI and Reports no additional eye complaints Reports system reviewed and no additional complaints, except as documented Cardiovascular: Reports as per HPI and Reports no additional cardiovascular complaints Respiratory: Reports as per HPI and Reports no additional respiratory complaints Gastrointestinal: Reports as per HPI and Reports no additional gastrointestinal complaints Genitourinary: Reports no additional female genitourinary complaints Musculoskeletal: Reports no additional musculoskeletal complaints Skin/Breast: Reports system reviewed and no additional complaints, except as docu Psychiatric: Reports no additional psychiatric complaints Endocrine: Reports no additional endocrine complaints Hematologic/Lymphatic: Reports no additional hematologic/lymphatic complaints Allergic/Immunologic: Reports no additional allergic/immunologic complaints Reports system reviewed and no additional complaints, except as documented and Reports Abnormal speech present FOR[facility] Past Medical History Medical History No pertinent past medical history Social History Social History Alcohol intake: current Alcohol intake frequency: holidays/special occasions only Patient Tobacco Use Status: Never used Tobacco Advance Directives: No Advance Directives Information Provided: No Do you have a plan to hurt others: No Plan Physical Exam ED Vital Signs: Vital Signs - 24 hr 08/24/24 18:48 08/24/24 23:40 08/24/24 23:56 Temperature 97.9 F 98.1 F 98.1 F Pulse Rate 73 64 64 Respiratory Rate 18 18 18 Blood Pressure 127/73 129/65 129/65 Pulse Oximetry 99 99 99 Oxygen Delivery Method Room Air Room Air BMI result Body Mass Index 27.7 Vital signs have been reviewed and appear to be correct. Blood pressure elevated. Heart rate normal. Respiratory rate normal. Temperature normal. Oxygen saturation normal. Appearance: Alert. Oriented X3. No acute distress. Head: Normal external exam. Normocephalic. Atraumatic. No [place] signs noted. No raccoon eyes noted Eyes: PERRLA. EOMI. Conjunctiva and sclera normal. Eyelids normal. ENT: TM's Normal. Pharynx normal. Uvula midline. Moist mucous membranes. No trismus noted. No drooling noted. No muffled voice noted. Neck: Normal inspection. Neck supple. FROM. No adenopathy. Thyroid Normal. No meningeal signs. No neck mass noted. CVS: Normal heart rate and rhythm. Heart sound normal. No murmurs noted. Pulses normal throughout. Respiratory: No respiratory distress. Painless inspiration. Breath sounds normal. No wheezes/rales/rhonchi noted. Chest nontender. No accessory muscle usage noted or decreased air movement noted. Abdomen: Soft and nontender. Bowel sounds normal in all 4 quadrants. No distention noted. No organomegaly noted. No visible injury noted. Back: No CVA tenderness. Full range of motion noted. Skin: Skin warm and dry. Normal skin color. Normal skin turgor. No rashes/lesions/lacerations noted. Extremities: No lower extremity edema. Extremities exhibit normal range of motion. Extremities nontender. Neuro: Oriented X 3. Cranial nerve exam: II-XII are grossly intact No motor deficit. No sensory deficit. Reflexes normal. Course Course Course Narrative: RME: 24-year-old male with closely back presents to ED for low back pain and abdominal pain after falling yesterday on ice. Patient denies hitting head or loss of consciousness. Lumbar spine x-ray ordered. Due to patient has history of Crohn's who has a recent colostomy bag placed will do labs and labs incase ED provider would like to do CT scan of abdomen Reevaluation(s) Reevaluation #1: s/p mechanical fall after slipping on black ice causing fall backward hitting lower back yesterday, no neurological deficit. Able to ambulate on both toes and heels in the ED. Time: 23:27 Medical Decision Making Differential Diagnosis Differential Diagnoses: The differential diagnosis associated with the presentation includes ( head injury, cervical spine injury, thoracic injury, abdominal injury, extremity injury, lumbar spine injury brain) Admission/Observation Consideration of admission/observation: Escalation of care including admission/observation considered Lab Data MDM Lab Attestation statement: I reviewed the patient's lab results. 08/24/24 19:43 08/24/24 19:43 Labs: Lab Results 08/24/24 Range/Units 19:43 WBC 8.7 (4.8-10.8) X10*3/uL RBC 5.43 (4.60-5.80) X10*6/uL Hgb 13.5 L D (14.0-18.0) g/dl Hct 42.6 D (42.0-52.0) % MCV 78.5 L (80.0-98.0) fL MCH 24.9 L (27.0-33.0) pg MCHC 31.7 (31.0-36.0) g/dl RDW 16.1 H (11.0-16.0) % Plt Count 276 D (160-400) X10*3/uL MPV 10.0 (9.4-12.4) fL Immature Gran % (Auto) 0.2 (0.0-0.4) % Neut % (Auto) 65.7 (45-73) % Lymph % (Auto) 19.1 L (20-40) % [place] % (Auto) 10.2 (2-11) % Eos % (Auto) 4.2 H (0-4) % Baso % (Auto) 0.6 (0-2) % Lymph # (Auto) 1.7 (1.2-4.9) X10*3/uL [place] # (Auto) 0.9 (0.1-1.2) X10*3/uL Eos # (Auto) 0.4 (0.0-0.4) X10*3/uL Baso # (Auto) 0.1 (0.0-0.2) X10*3/uL Abs Immat Gran (auto) 0.02 (0.00-0.03) X10*3/uL Absolute Neuts (auto) 5.7 (2.0-8.3) x10*3/uL Absolute Nucleated RBC 0.000 (0.0-0.012) X10*3/uL Nucleated RBC % (auto) 0.0 (0.0-0.2) /100WBC Sodium 142 (135-145) mmol/L Potassium 4.5 (3.3-5.1) mmol/L Chloride 107 (96-108) mmol/L Carbon Dioxide 27 (22-29) mmol/L Anion Gap 13 (12-20) BUN 15 (9-16) mg/dL Creatinine 0.94 (0.5-1.4) mg/dL Estim Creat Clear Calc 126.9 Estimated GFR > 60 Random Glucose 104 (60-115) mg/dL Calcium 10.0 (8.4-10.2) mg/dL Total Bilirubin 0.3 (0.0-1.0) mg/dL AST 22 (5-37) U/L ALT 45 H (0-40) U/L Alkaline Phosphatase 133 H (39-117) U/L Total Protein 8.1 H (6.5-8.0) g/dL Albumin 4.6 (3.5-5.0) g/dL Lipase 22 (8-78) U/L Independent Interpretation I performed an independent interpretation of an: Plain X-Ray ( lumbar spine:No acute findings. At L5-S1, there is disc space narrowing posteriorly.) Radiology Impression Discussion of test interpretation with radiology: I have reviewed the radiologist's reading. Discharge Plan Discharge Clinical Impression: Contusion of lumbar spinal region Patient Disposition: Home, Self-Care Instructions: Contusion in Adults (ED) Prescriptions: New ibuprofen 600 mg tablet 600 mg PO Q8H PRN (Reason: pain) Qty: 20 0RF No Action benzonatate [Tessalon Perles] 100 mg capsule 100 mg PO TID PRN (Reason: cough) Qty: 14 0RF prednisone 20 mg tablet 40 mg PO DAILY Qty: 10 0RF diphenhydramine HCl [Benadryl Allergy] 25 mg tablet 50 mg PO QID PRN (Reason: allergic reaction) Qty: 20 0RF diphenhydramine HCl [Benadryl] 25 mg capsule 50 mg PO Q6H PRN (Reason: allergic reaction) Qty: 20 0RF prednisone 20 mg tablet 40 mg PO DAILY Qty: 10 0RF polyethylene glycol 3350 [Miralax] 17 gram/dose powder 17 g PO DAILY Qty: 510 0RF ibuprofen 600 mg tablet 600 mg PO Q6H PRN (Reason: fever or pain) Qty: 30 0RF prednisone 20 mg tablet 40 mg PO DAILY 5 Days Qty: 10 0RF diphenhydramine HCl [Benadryl] 25 mg capsule 25 mg PO TID PRN (Reason: allergic reaction) Qty: 20 0RF epinephrine [EpiPen 2-Junior] 0.3 mg/0.3 mL auto-injector 0.3 mg IM Q4H PRN (Reason: anaphylaxis) Qty: 2 0RF omeprazole 20 mg capsule,delayed release(DR/EC) 20 mg PO BID Qty: 60 0RF sucralfate [Carafate] 100 mg/mL suspension 10 ml PO BID 10 Days Qty: 200 0RF dicyclomine 20 mg tablet 20 mg PO TID Qty: 20 0RF sucralfate 1 gram tablet 1 g PO TID Qty: 90 0RF omeprazole 20 mg capsule,delayed release(DR/EC) 20 mg PO DAILY Qty: 30 0RF omeprazole 20 mg capsule,delayed release(DR/EC) 20 mg PO BID Qty: 60 0RF alum-mag hydroxide-simeth [Maalox Advanced] 200-200-20 mg/5 mL suspension 10 ml PO QID PRN (Reason: dyspepsia) Qty: 3000 0RF Rx Instructions: administer between meals and at bedtime doxycycline hyclate 100 mg tablet 100 mg PO BID Qty: 14 0RF Interventions: ED Discharge Assessment Last Done: 08/24/24 23:56 Discharge Date/Time: 08/24/24 23:56 Print Language: Serbian
[2024-08-24 19:47] LABS: MANUAL DIFF FLAG NO
[2024-08-24 19:48] LABS: Basophils Absolute Auto 0.1 X10*3/uL (0.0-0.2); Basophils Percent Auto 0.6 % (0-2); Eosinophils Absolute Auto 0.4 X10*3/uL (0.0-0.4); Eosinophils Percent Auto 4.2 % (0-4); Hematocrit 42.6 % (42.0-52.0); Hemoglobin 13.5 g/dl (14.0-18.0); Imm Gran Abs Auto 0.02 X10*3/uL (0.00-0.03); Imm Gran Pct Auto 0.2 % (0.0-0.4); Lymphocytes Absolute Auto 1.7 X10*3/uL (1.2-4.9); Lymphocytes Percent Auto 19.1 % (20-40); Mean Corpuscular HGB Conc 31.7 g/dl (31.0-36.0); Mean Corpuscular Hemoglobin 24.9 pg (27.0-33.0); Mean Corpuscular Volume 78.5 fL (80.0-98.0); Monocytes Absolute Auto 0.9 X10*3/uL (0.1-1.2); Monocytes Percent Auto 10.2 % (2-11); Neutrophils Absolute Auto 5.7 x10*3/uL (2.0-8.3); Neutrophils Percent Auto 65.7 % (45-73); Platelet Count 276 X10*3/uL (160-400); Red Blood Count 5.43 X10*6/uL (4.60-5.80); Red Cell Distribution Width 16.1 % (11.0-16.0); White Blood Count 8.7 X10*3/uL (4.8-10.8)
[2024-08-24 20:02] LABS: Alanine Aminotransferase 45 U/L (0-40); Albumin Level 4.6 g/dL (3.5-5.0); Alkaline Phosphatase 133 U/L (39-117); Anion Gap 13 (12-20); Aspartate Amino Transferase 22 U/L (5-37); Bilirubin Total 0.3 mg/dL (0.0-1.0); Blood Urea Nitrogen 15 mg/dL (9-16); Carbon Dioxide 27 mmol/L (22-29); Chloride 107 mmol/L (96-108); Creatinine Clr Calc Pharmacy 126.9; Estimated Glomerular Filt Rate > 60; Glucose Random 104 mg/dL (60-115); Lipase 22 U/L (8-78); Potassium 4.5 mmol/L (3.3-5.1); Sodium 142 mmol/L (135-145); Total Protein 8.1 g/dL (6.5-8.0)
[2024-08-24 23:40] VITALS: BP 129/65; PULSE 64; RESP 18; TEMP 36.7; O2SAT 99
--- NOTE | 2024-08-24 23:51 | PC.NURSE ---
Took over care from Dong Hong at 23:00, The RN reviewed discharge instructions with pt. pt verbalized understanding no sign of distress, pt ambulated with a steady gait upon discharge.
[2024-08-24 23:56] VITALS: BP 129/65; PULSE 64; RESP 18; TEMP 36.7; O2SAT 99
== END 2024-08-24 23:56 | disposition home or self-care (01) ==
PROVIDERS: Physician Assistant; Emergency Provider Emergency Medicine
DX: S30.0XXA Contusion of lower back and pelvis, initial encounter (principal); W00.0XXA Fall on same level due to ice and snow, initial encounter; Y93.89 Activity, other specified; Y92.009 Unspecified place in unspecified non-institutional (private) residence as the place of occurrence of the external cause; Y99.9 Unspecified external cause status
CPT/HCPCS: 36415; 72100; 80053; 83690; 85025; 99283; 99284

== ENCOUNTER → 2024-08-24 18:55 | Outpatient (BNV) | payer MEDICAID, SELFPAY | PROVIDERS: Visit Provider Radiology Vascular & Interventional Radiology | DX: M51.370 Other intervertebral disc degeneration, lumbosacral region with discogenic back pain only (principal) | CPT/HCPCS: 72100 ==